=== PATIENT | male | born 1950 | race African-American/Black ===

== ENCOUNTER → 2023-04-16 11:10 | Outpatient (REF) | payer OTHER, SELFPAY | LOC: DHCBC HW 11:10 | PROVIDERS: ATTENDING PHYSICIAN Internal Medicine Cardiovascular Disease; FAMILY PHYSICIAN Family Medicine | DX: I34.0 Nonrheumatic mitral (valve) insufficiency (principal) | CPT/HCPCS: 93306 ==

== ENCOUNTER 2023-05-07 15:46 | Emergency (ER) | payer OTHER, SELFPAY ==
[2023-05-07 15:49] VITALS: BP 134/79
[2023-05-07 16:15] LABS: % Basophils 0.2 % (0-2); % Eosinophils 1.4 % (0-6); % Immature Granulocytes 0.5 % (0-0.5); % Lymphocytes 36.9 % (20.5-51.1); % Monocytes 15.7 % (1.7-9.3); % Neutrophils 45.3 % (42.2-75.2); Absolute Eosinophils 0.1 10^3/uL (0-0.7); Absolute Lymphocytes 3.1 10^3/uL (1.2-3.4); Absolute Monocytes 1.3 10^3/uL (0.1-0.6); Absolute Neutrophils 3.8 10^3/uL (1.4-6.5); Hematocrit 40.9 % (39.0-52.0); Hemoglobin 13.5 g/dL (13.0-18.0); Mean Corpuscular Hgb 27.5 pg (27.0-31.0); Mean Corpuscular Volume 83.3 fL (80.0-94.0); Mean Platelet Volume 9.2 fL (7.4-10.4); Nucleated Red Blood Cells % 0 % (-); Platelet Count 375 10^3/uL (130-400); Red Blood Cell Count 4.91 10^6/uL (4.70-6.10); Red Cell Dist. Width 13.5 % (11.5-14.5); White Blood Cell Count 8.5 10^3/uL (4.8-10.8)
[2023-05-07 16:33] LABS: COVID-19 Antigen Negative (Negative)
[2023-05-07 16:44] LABS: NT-proBNP 70.8 pg/ml; Troponin I < 0.012 ng/ml
[2023-05-07 16:47] LABS: ALT (SGPT) 26 U/L (0-50); AST (SGOT) 32 U/L (17-59); Alkaline Phosphatase 82 U/L (38-126); Blood Urea Nitrogen 24 mg/dl (9-20); Calcium 10.3 mg/dl (8.4-10.2); Carbon Dioxide 25 mmol/L (22-30); Chloride 103 mmol/L (98-107); Glucose 87 mg/dl (70-99); Potassium 4.7 mmol/L (3.5-5.1); Sodium 139 mmol/L (135-145); Total Bilirubin 0.8 mg/dl (0.2-1.3); Total Protein 7.7 g/dl (6.3-8.2); eGFR 57.29
[2023-05-07 18:00] VITALS: BP 135/84
[2023-05-07 18:02] VITALS: BMI 29.6
--- NOTE | 2023-05-07 18:17 | ED.GENMED ---
History of Present Illness
General
Chief Complaint: Breathing Problem
Time Seen by Provider: 05/07/23 18:17
Travel History
Have you had any contact with someone who has COVID-19?: No
Do you have any symptoms of coronavirus? Fever > 100 degrees, chills, cough, shortness of breath, sore throat, loss of taste or smell, muscle aches, or headache?: No
History of Present Illness
History of Present Illness:
HPI: Patient presents due to shortness of breath. It started earlier today. Currently he feels improved. He does report having a bad 'valve' on recent echo. He called Dr. Moya and their office told to come in here for further evaluation. He
never had any chest pain.
EXAM:
GENERAL: Well appearing in no distress
HEENT: Moist oral mucosa
CARDIOVASCULAR: Systolic murmur heard diffusely, normal heart rate and rhythm, No chest wall tenderness
PULMONARY: No respiratory distress, breath sounds are clear and equal
ABDOMEN: Soft with no peritoneal signs, no tenderness
NEUROLOGIC: Excellent strength all extremities, no coordination deficits
PSYCHIATRIC: Appropriate mental status, normal insight and judgement
EXTREMITIES: Nontender, no edema, moves all extremities equally
SKIN: No rash, no lesions
ED COURSE:
6:40 PM: I initially evaluated patient
NUMBER AND COMPLEXITY OF PROBLEMS ADDRESSED AT THE ENCOUNTER
� Chronic conditions affecting care: Atrial fibrillation, mitral regurgitation, high blood pressure, hyperlipidemia, has had pericarditis and required a cardiac window
� Acute Exacerbation and/or Progression of Chronic Illness: This is an acute problem
� Differential Diagnosis includes: Worsening valvular disease, heart failure, ACS pneumonia unlikely as breath sounds are clear and he is 100% on room air
AMOUNT AND/OR COMPLEXITY OF DATA TO BE REVIEWED AND ANALYZED
� I performed an independent evaluation of and my interpretation is:
EKG: Sinus 54, left axis deviation, nonspecific ST abnormality, LVH
CT:
X-rays: Personally reviewed chest x-ray, right lung is clear, questionable density at left base not seen on lateral view
Laboratory Studies: CBC unremarkable, chemistries, troponin, BNP unremarkable, COVID-negative
Other:
� Review of other/old records: Echo from earlier this month showed an EF of 60 to 65%, severe mitral valve regurgitation noted
� Clinical information was obtained by an independent historian: None needed
� Prescriptions/Medications Considered but not given:
� Further testing considered but not performed:
RISK OF COMPLICATIONS AND/OR MORBIDITY OR MORTALITY OF PATIENT MANAGEMENT
� Social determinants of health affecting care: Lives at home
� Discussion with other providers: I notified Dr. Quiroz as the patient was sent by Dr. Denney chest pain hotline follow-up
� Escalation of care including admission/observation vs risk of discharge considered: Symptoms may or may not be related to worsening mitral valvular disease. On reassessment at 7:45 PM, the patient remains to be under percent
on room air and is in no distress.
Past History
Past History
ED Past Medical History: Arrthythmia (afib), HTN and Hypercholesterolemia
ED Past Surgical History: None
Social History
Tobacco: Non-smoker
Alcohol: None
Drug: None
Personal:
Living: with family
Phy Exam
Physical Exam
Physical Exam:
See HPI
Scores
Heart Failure Risk
Heart Failure Risk Score: Not Applicable
Course
Orders/Labs/Results
Orders:
Orders
05/07/23 15:52
Electrocardiogram (*1) Urgent
Reason for Study: Shortness of Breath
EKG- Treatment ONCE
CR Chest - 2 Views Urgent
Comment:
Reason For Exam: SOB
05/07/23 16:00
COVID-19 Antigen Urgent
Source: Nasal Swab
Complete Blood Count/With Diff Urgent
Comprehensive Metabolic Panel Urgent
NT-proBNP Urgent
Troponin I Urgent
05/07/23 16:02
Influenza A+B Rapid Molecular Urgent
CHRISTI Source: Nasal Swab
Specimen Description:
Abnormal Lab Results
05/07/23
16:00
Absolute Monos (auto) 1.3 H 10^3/uL
(0.1-0.6)
Monocytes % 15.7 H %
(1.7-9.3)
BUN 24 H mg/dl
(9-20)
Calcium 10.3 H mg/dl
(8.4-10.2)
05/07/23 16:00
05/07/23 16:00
Vital Signs
Initial and Last Documented VS:
Initial Vital Signs
Temp Pulse Resp BP Pulse Ox
98.3 F 100 20 134/79 99
05/07/23 15:49 05/07/23 15:49 05/07/23 15:49 05/07/23 15:49 05/07/23 15:49
Last Documented Vital Signs
Temp Pulse Resp BP Pulse Ox
98.3 F 45 13 116/73 100
05/07/23 15:49 05/07/23 19:00 05/07/23 19:00 05/07/23 19:00 05/07/23 19:00
*Critical Care Note
Total Time (30-74mins, 75-104mins- exclusive of procedures): Not Applicable
ED Attending Note
-
Portions of this chart may have been created with voice recognition software.� Occasional wrong word or��sound alike� substitutions may have occurred due to the inherent limitations of voice recognition software.
Discharge Plan
Departure
Prescriptions:
No Action
atenolol 100 MG tablet
100 mg PO DAILY
simvastatin 20 MG tablet
20 mg PO DAILY
lisinopril 40 MG tablet
40 mg PO DAILY
spironolactone 25 MG tablet
25 mg PO DAILY
tamsulosin [Flomax] 0.4 MG capsule
0.4 mg PO DAILY
furosemide 20 MG tablet
20 mg PO .EVERY OTHER DAY
celecoxib 200 MG capsule
200 mg PO BID Qty: 14 0RF
lorazepam 0.5 MG tablet
0.5 mg PO Q4HPRN PRN (Reason: muscle spasm) Qty: 14 0RF
Referrals:
Angel Lawson MD [Family Provider] -
Interventions
Interventions:
*Risk Screen - Suicide Last Done: 05/07/23 15:49
*General Assessment Last Done: 05/07/23 15:49
*Neglect/Abuse Screening Last Done: 05/07/23 18:04
ED- Fall Risk Assessment Last Done: 05/07/23 18:04
*ED COVID-19 Vaccine History Last Done: 05/07/23 18:04
ED- Cardiac Assessment Last Done: 05/07/23 18:04
ED- Pulmonary Assessment Last Done: 05/07/23 18:04
[2023-05-07 19:00] VITALS: BP 116/73
[2023-05-07 20:00] VITALS: BP 130/76
[2023-05-07 21:00] VITALS: BP 144/83
== END 2023-05-07 21:44 | disposition home or self-care (01) ==
LOC: EMR 15:46
PROVIDERS: Emergency Medicine; EMERGENCY PHYSICIAN Emergency Medicine; FAMILY PHYSICIAN Family Medicine
DX: R06.02 Shortness of breath (principal); I48.91 Unspecified atrial fibrillation; E78.00 Pure hypercholesterolemia, unspecified; I10 Essential (primary) hypertension; Z11.52 Encounter for screening for COVID-19
CPT/HCPCS: 99285; 71046; 80053; 83880; 84484; 85025; 87502; 87811; 93005

== ENCOUNTER 2023-05-14 08:24 | Day surgery (SDC) | payer OTHER, SELFPAY ==
[2023-05-14] VITALS (10 sets, daily range): BP systolic 81–131; BP diastolic 56–77; BMI 32.8
[2023-05-14] MEDS: NSS 315 ML IV (09:20)
--- NOTE | 2023-05-14 11:53 | ITS.CL.CATH ---
Senior Marketing Specialist - Catheterization
Cardiac Catheterization
Procedure Report:
CARDIAC CATHETERIZATION REPORT
Date of Procedure: 05/14/2023
Referring: Gurpreet Izaguirre MD
Indication: Symptomatic severe mitral regurgitation with mitral valve prolapse
HEMODYNAMIC DATA
AO: 128/82
LV: 128/18
LEFT VENTRICULOGRAPHY: Mild left ventricular enlargement with overall normal left ventricular function with EF visually estimated at 60%. There is at least moderate and probably severe mitral regurgitation with evidence of mitral valve prolapse
CORONARY ANGIOGRAPHY
Dominance: Right
Left Main: Normal
LAD: Normal
Circumflex: Normal
RCA: Normal dominant RCA
Closure Device: None-the procedure was performed via the right radial artery. The Michael's test was normal prior to the procedure.
Radiation (mGy): 362
DAP (cm2.Gy): 31.7
Fluoroscopy time: 2.9 minutes
CONCLUSIONS
1: Mild left ventricular enlargement with visually estimated EF 60%
2: Mitral valve prolapse/moderate to severe right regurgitation
3. We will refer for evaluation for surgical mitral valve repair/replacement
Copy to: Gurpreet Izaguirre MD, Angel Lawson MD, Mateo Mustafa MD
Richie Moreland MD, [facility], [facility]
== END 2023-05-14 14:20 | disposition home or self-care (01) ==
LOC: CATH 08:24
PROVIDERS: ATTENDING PHYSICIAN Internal Medicine Cardiovascular Disease; FAMILY PHYSICIAN Family Medicine; OTHER PHYSICIAN Internal Medicine Cardiovascular Disease
DX: I34.0 Nonrheumatic mitral (valve) insufficiency (principal); I34.1 Nonrheumatic mitral (valve) prolapse; I10 Essential (primary) hypertension; E78.00 Pure hypercholesterolemia, unspecified
CPT/HCPCS: 93458; C1894; Q9967

== ENCOUNTER → 2023-06-02 09:52 | Outpatient (REF) | payer OTHER, SELFPAY | LOC: HWRAD 09:52 | PROVIDERS: ATTENDING PHYSICIAN Thoracic Surgery (Cardiothoracic Vascular Surgery); FAMILY PHYSICIAN Family Medicine | DX: Z01.818 Encounter for other preprocedural examination (principal); I34.0 Nonrheumatic mitral (valve) insufficiency | CPT/HCPCS: 71275; 74174; Q9967 ==

== ENCOUNTER → 2023-06-03 06:44 | Day surgery (SDC) | payer OTHER, SELFPAY | LOC: CATH 06:44 | PROVIDERS: ATTENDING PHYSICIAN Internal Medicine; FAMILY PHYSICIAN Family Medicine | DX: I08.3 Combined rheumatic disorders of mitral, aortic and tricuspid valves (principal); I10 Essential (primary) hypertension; E78.5 Hyperlipidemia, unspecified; G47.33 Obstructive sleep apnea (adult) (pediatric) | CPT/HCPCS: 93312; 93320; 93325 ==

== ENCOUNTER 2023-06-14 04:57 | Inpatient (IN) | payer OTHER, SELFPAY ==
[2023-05-27 12:25] VITALS: BMI 33.1
[2023-05-27 12:49] LABS: % Basophils 0.7 % (0-2); % Eosinophils 1.7 % (0-6); % Immature Granulocytes 0.4 % (0-0.5); % Lymphocytes 39.6 % (20.5-51.1); % Monocytes 15.1 % (1.7-9.3); % Neutrophils 42.5 % (42.2-75.2); Absolute Eosinophils 0.1 10^3/uL (0-0.7); Absolute Lymphocytes 2.1 10^3/uL (1.2-3.4); Absolute Monocytes 0.8 10^3/uL (0.1-0.6); Absolute Neutrophils 2.3 10^3/uL (1.4-6.5); Hemoglobin 13.5 g/dL (13.0-18.0); Mean Corp Hgb Conc. 33.8 g/dL (33.0-37.0); Mean Corpuscular Hgb 27.6 pg (27.0-31.0); Mean Corpuscular Volume 81.8 fL (80.0-94.0); Nucleated Red Blood Cells % 0 % (-); Platelet Count 321 10^3/uL (130-400); Red Blood Cell Count 4.89 10^6/uL (4.70-6.10); Red Cell Dist. Width 13.7 % (11.5-14.5); White Blood Cell Count 5.4 10^3/uL (4.8-10.8)
[2023-05-27 12:57] LABS: INR 1.17
[2023-05-27 12:58] LABS: APTT 30.1 Sec (23.4-35.0)
[2023-05-27 13:05] LABS: ALT (SGPT) 29 U/L (0-50); AST (SGOT) 32 U/L (17-59); Albumin 4.3 g/dl (3.5-5.0); Alkaline Phosphatase 78 U/L (38-126); Blood Urea Nitrogen 18 mg/dl (9-20); Calcium 9.5 mg/dl (8.4-10.2); Carbon Dioxide 23 mmol/L (22-30); Chloride 108 mmol/L (98-107); Direct Bilirubin 0.1 mg/dl (0.0-0.4); Estimated Creatinine Clearance 60 ml/min; Glucose 96 mg/dl (70-99); Potassium 4.9 mmol/L (3.5-5.1); Sodium 137 mmol/L (135-145); Total Bilirubin 0.9 mg/dl (0.2-1.3); Total Protein 7.6 g/dl (6.3-8.2); eGFR 57.29
[2023-05-27 14:07] LABS: Urine Albumin Negative (Neg - Trace); Urine Bilirubin Negative (Negative); Urine Character Clear (Clear); Urine Color Yellow; Urine Glucose Negative (Negative); Urine Ketone Negative (Negative); Urine Leukocyte Negative (Negative); Urine Nitrite Negative (Negative); Urine Occult Blood Negative (Negative); Urine Specific Gravity 1.015 (<1.030); Urine Urobilinogen Negative (Neg - 1+)
--- NOTE | 2023-05-27 15:04 | CM ---
CM met w/ patient at bedside for PATs for planned MVR.
Patient informs that he resides alone in a private, multi level home. Main bedroom/ bath located on the 2nd level. There are no steps to enter the home. Patient is functionally indep. at baseline w/ ADLs, mobility without the use of any assisted
device. He does have a CPAP, which he uses regularly. Pt. works 4 days per week. He has many family members, though none of whom reside very locally.
Reviewed pre and post op routines.
Soap, shower instructions, and Cardiac Surgery booklet provided.
Discussed post op restrictions to include lifting, driving restrictions.
Reviewed post op MD appointments, Cardiac Rehab and visit from CT Transitional Care RN. *Pt. MAY consider staying with his sister in [place] for a short period of time. Alternatively, he may have family staying w/ him for a brief period of time*
Plan for CT Surgery 06/13
Anticipated DC plan is for home w/ CT Transitional Care RN.
CM to follow.
--- NOTE | 2023-06-13 20:56 | W.PN.CT ---
Assessment / Plan
-
Assessment:
-S/P Redo mediastinal access via right mini thoracotomy with right common femoral artery and vein cannulation under PANCHO guidance/Radical mitral valve repair (32 mm band annuloplasty, 2 pairs of CV 4 Granger-Paul cords to the P2 scallop, 1 pair of CV 4
Granger-Paul cord to the A2 scallop, free margin remodeling at P1/P2 and P2/P3 and A2/A3)/Significant adhesiolysis intrapericardial as well as pneumolysis of pulmonary adhesions, by Dr. Mustafa, 06/14/23, pod#1
-Severe MR
-Dilated Asc. Aorta (3.5 cm per intraop PANCHO)
-LVEF 60-65%
-Mild TR
-Hx Pericardial effusion/pericarditis S/P pericardiotomy/pericardiocentesis, pericardectomy via subxiphoid and L ant. thoracotomy approach, 40 yrs ago
-Sinus bradycardia with 1st deg AVB
-Incomplete LBBB
-HTN
-Hyperlipidemia
-Prediabetes (hgb A1C 6.0)
-Class 1 obesity (BMI 33.1)
-PAMELA (uses CPAP machine)
-BPH (on Flomax @ home)
-S/P Cataracts
-Acute postop blood loss/Anemia (stable without transfusion)
-Acute postop atelectasis
-Acute postop hypovolemia with subsequent hypervolemia
Plan:
-No major issues overnight. Hemodynamically and neurologically intact
-Successfully extubated on 06/14/23 @ 1710
-Weaned off Levophed gtt. Remains on insulin gtt per protocol
-Last CI , U/O since OR
-Cont. current meds (ASA, Lipitor, Amiodarone, Lopressor)
-Monitor chest tube output: Med , R pleural
-D/C'd swan ~1800 on 06/14/23
-D/C A-line this AM @ 0415
-Transfer to [facility] phase once off insulin gtt
-D/C lopez later today given BPH on flomax @ home
-Maintain cordis
-Maintain temporary pacer wires (will cut before d/c home)
-Encourage use of IS
-Wean off of O2 as tolerated
-OOB into chair/Ambulate
Subjective
-
Date of Service: June 13, 2023
Objective Data
-
Lab Results
05/27/23 12:08
05/27/23 12:08
PT 15.0 Sec (11.4-14.6) H 05/27/23 12:08
INR 1.17 05/27/23 12:08
APTT 30.1 Sec (23.4-35.0) 05/27/23 12:08
[2023-06-14] VITALS (15 sets, daily range): BP systolic 98–148; BP diastolic 67–83; BMI 31.7
[2023-06-14] MEDS: LOPRESSOR 25 MG PO (05:53)
[2023-06-14] MEDS: MAGNESIUM OXIDE 500 MG PO (05:53)
[2023-06-14] MEDS: PROTONIX 40 MG PO (05:54)
[2023-06-14] MEDS: BACTROBAN 2% OINTMENT 1 APPLIC NASAL ×2 (05:54→20:16)
--- NOTE | 2023-06-14 06:00 | PTCARENOTE ---
Pt to CVICU room 2262. Confirmed NPO since midnight and two showers taken at home with surgical soap. ABO drawn and sent. Vital signs obtained. Admission questions completed. Pt clipped and cleaned w/ CHG wipes. Pre-op medications administered. Pt
two daughters at the bedside. Pt oriented to room. Questions encouraged and answered.
--- NOTE | 2023-06-14 06:13 | W.CVOR.SURPR ---
CVOR Surgeon Immed Pre Op
-
I have examined this patient prior to performance of the scheduled procedure.
The patient's condition is unchanged from the time of the dictated/written History and
Physical and the patient is able to undergo the scheduled procedure.
Plan for HP MV repair. He had what sounds like pericardial effusion (for viral infection) that lead to pericardiocentesis that ultimately
resulted in urgent surgery via sub xiphoid incision and left anterior thoracotomy. He states that he was told
part of his heart sac lining was inflamed which was removed. He understands that we will proceed right thoracotomy at first
which might be better as the R chest is [place]. However, he has a higher than average chance of conversion to sternotomy
as we are technically in a redo-mediastinal access situation.
[2023-06-14 07:16] LABS: ACT+ - POC 112 Seconds (82-134)
[2023-06-14 07:19] LABS: B.E. - POC -2.9 mmol/L; Glucose - POC 93 mg/dl (65-99); HCO3 - POC 24 mmol/L (21-29); Hematocrit - POC 37 % PCV (42-52); Hemodilution- POC No; Hemoglobin Calculated - POC 12.7; O2 Saturation %Calculated-POC 99.9 5 (92-96); PCO2 - POC 48 mmHg (35-45); PO2 - POC 312 mmHg (80-100); Potassium - POC 3.9 mmol/L (3.6-5.0); Sodium - POC 144 mmol/L (135-145); pH - POC 7.31 (7.35-7.45)
[2023-06-14 07:35] LABS: Urine Albumin Negative (Neg - Trace); Urine Bilirubin Negative (Negative); Urine Character Clear (Clear); Urine Color Yellow; Urine Glucose Negative (Negative); Urine Ketone Negative (Negative); Urine Leukocyte Negative (Negative); Urine Nitrite Negative (Negative); Urine Occult Blood Negative (Negative); Urine Specific Gravity 1.015 (<1.030); Urine Urobilinogen Negative (Neg - 1+)
[2023-06-14 09:09] LABS: ACT+ - POC 625 Seconds (82-134)
[2023-06-14 09:20] LABS: B.E. - POC -0.9 mmol/L; Glucose - POC 102 mg/dl (65-99); HCO3 - POC 24 mmol/L (21-29); Hematocrit - POC 30 % PCV (42-52); Hemodilution- POC Yes; Hemoglobin Calculated - POC 10.2; Ionized Calcium - POC 1.08 mmol/L (1.12-1.27); PCO2 - POC 42 mmHg (35-45); PO2 - POC 463 mmHg (80-100); Potassium - POC 4.8 mmol/L (3.6-5.0); Sodium - POC 139 mmol/L (135-145); pH - POC 7.37 (7.35-7.45)
[2023-06-14 09:25] LABS: ACT+ - POC 640 Seconds (82-134)
[2023-06-14 09:49] LABS: B.E. - POC -1.4 mmol/L; Glucose - POC 137 mg/dl (65-99); HCO3 - POC 27 mmol/L (21-29); Hematocrit - POC 31 % PCV (42-52); Hemodilution- POC Yes; Hemoglobin Calculated - POC 10.5; Ionized Calcium - POC 1.13 mmol/L (1.12-1.27); O2 Saturation %Calculated-POC 99.9 5 (92-96); PCO2 - POC 62 mmHg (35-45); PO2 - POC 355 mmHg (80-100); Sodium - POC 139 mmol/L (135-145); pH - POC 7.24 (7.35-7.45)
[2023-06-14 09:50] LABS: ACT+ - POC 565 Seconds (82-134)
[2023-06-14 10:19] LABS: ACT+ - POC 526 Seconds (82-134)
[2023-06-14 10:25] LABS: B.E. - POC -5.4 mmol/L; Glucose - POC 179 mg/dl (65-99); HCO3 - POC 22 mmol/L (21-29); Hematocrit - POC 30 % PCV (42-52); Hemodilution- POC Yes; Hemoglobin Calculated - POC 10.3; Ionized Calcium - POC 1.06 mmol/L (1.12-1.27); O2 Saturation %Calculated-POC 99.8 5 (92-96); PCO2 - POC 48 mmHg (35-45); PO2 - POC 284 mmHg (80-100); Potassium - POC 6.8 mmol/L (3.6-5.0); Sodium - POC 137 mmol/L (135-145); pH - POC 7.26 (7.35-7.45)
[2023-06-14 10:42] LABS: ACT+ - POC 504 Seconds (82-134)
[2023-06-14 10:50] LABS: B.E. - POC -3.1 mmol/L; Glucose - POC 163 mg/dl (65-99); HCO3 - POC 22 mmol/L (21-29); Hematocrit - POC 31 % PCV (42-52); Hemodilution- POC Yes; Hemoglobin Calculated - POC 10.5; Ionized Calcium - POC 1.03 mmol/L (1.12-1.27); PCO2 - POC 41 mmHg (35-45); PO2 - POC 401 mmHg (80-100); Potassium - POC 4.6 mmol/L (3.6-5.0); Sodium - POC 141 mmol/L (135-145); pH - POC 7.34 (7.35-7.45)
[2023-06-14 10:54] LABS: ACT+ - POC 555 Seconds (82-134)
[2023-06-14 11:19] LABS: ACT+ - POC 506 Seconds (82-134)
[2023-06-14 11:22] LABS: B.E. - POC -1.6 mmol/L; Glucose - POC 142 mg/dl (65-99); HCO3 - POC 22 mmol/L (21-29); Hematocrit - POC 30 % PCV (42-52); Hemodilution- POC Yes; Hemoglobin Calculated - POC 10.1; Ionized Calcium - POC 0.98 mmol/L (1.12-1.27); PCO2 - POC 30 mmHg (35-45); PO2 - POC 365 mmHg (80-100); Potassium - POC 4.3 mmol/L (3.6-5.0); Sodium - POC 144 mmol/L (135-145); pH - POC 7.47 (7.35-7.45)
[2023-06-14 11:44] LABS: ACT+ - POC 112 Seconds (82-134)
--- NOTE | 2023-06-14 11:46 | CM ---
Chart reviewed. Patient is in the OR today. Patient is independent of ADLS, lives alone in a 2 STH, 0 CLARIBEL, 0 DME. Plan is for the patient to return home with CT Transitional RN. CM to follow
[2023-06-14 11:47] LABS: B.E. - POC -3.7 mmol/L; Glucose - POC 112 mg/dl (65-99); HCO3 - POC 23 mmol/L (21-29); Hematocrit - POC 32 % PCV (42-52); Hemodilution- POC Yes; Hemoglobin Calculated - POC 10.9; Ionized Calcium - POC 1.23 mmol/L (1.12-1.27); O2 Saturation %Calculated-POC 99.9 5 (92-96); PCO2 - POC 45 mmHg (35-45); PO2 - POC 310 mmHg (80-100); Potassium - POC 3.7 mmol/L (3.6-5.0); Sodium - POC 147 mmol/L (135-145); pH - POC 7.31 (7.35-7.45)
--- NOTE | 2023-06-14 12:19 | W.PN.CT.SURG ---
CT Surgery Operative Note
-
CARDIAC SURGERY OPERATIVE REPORT
Preoperative Diagnosis: Myxomatous mitral valve degeneration with severe insufficiency, symptomatic
Postoperative Diagnosis: Same, dense adhesions
Procedure(s) Performed:
1. Redo mediastinal access via right mini thoracotomy with right common femoral artery and vein cannulation under PANCHO guidance
2. Radical mitral valve repair (32 mm band annuloplasty, 2 pairs of CV 4 Royersford-Paul cords to the P2 scallop, 1 pair of CV 4 Royersford-Paul cord to the A2 scallop, free margin remodeling at P1/P2 and P2/P3 and A2/A3)
3. Placement temporary ventricular pacing wires
4. Trans esophageal echocardiography
5. Video-assisted thoracoscopic access using a 5 mm trocar and camera
6. Significant adhesiolysis intrapericardial he as well as pneumolysis of pulmonary adhesions
Date of Surgery: 06/14/2023
Comorbidities:
1. Prior pericardiotomy and pericardiectomy
2. 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
3. Hypertension
4. Hyperlipidemia
5. BPH
6. History of pericarditis requiring pericardiocentesis and subxiphoid and left anterior thoracotomy
Attending Surgeon: Mateo Mustafa MD, MS
Assistants: Cinda Kelsey PA-C (present and necessary for retraction, suctioning, exposure, suture management, wound closure, etc. under my direction)
Anesthesiology: Terry De Jesus MD and Fabi Philip CRNA
Scrub and Circulating RNs: Radha Avalos RN, Radha Fox RN
Member Service Specialist: Ramona Roth CCP
Anesthesia: GETA
EBL: per perfusion records
Products: None
CPB Time: 132 minutes
Aortic Cross Clamp Time: 104 minutes
Indication(s) for Procedures: This is a 73-year-old male with myxomatous mitral valve degeneration. He came with symptomatic mitral valve insufficiency in the form of shortness of breath and fatigue. He had previous meningitis that led to
pericarditis resulting in a pericardiocentesis attempt and then resulted in urgent subxiphoid window followed by a left anterior thoracotomy. We discussed the risk and benefits of surgery, he understood that given his previous pericardiotomy there
will be a likely highly noted of dense adhesions requiring adhesiolysis and conversion to a sternotomy. He excepted those risks and so we proceeded.
Mitral Valve Description: Thickening of both the anterior and posterior leaflets, flail segment at the P2 scallop which is also prolapse. Large cleft between P1/P2 and P2/P3. Small cleft between A2 and A3. The anterior leaflet did slightly
prolapse above the annular plane, there was dilation of the annulus.
Implants:
1. 32mm CONNER PhysioFlex Band, SN [id number]
2. 3 pairs of CV 4 Royersford-Paul
3. Multiple 5-0 Prolene's
Specimen:
1. None
Findings: Left ventricular ejection fraction preoperatively was approximately 60% with no regional wall motion abnormalities. Following surgery his left ventricular ejection fraction remained the same and there were no new regional wall motion
abnormalities. RV function was normal. The chest was initially accessed using a thoracoscopic camera under direct vision. There were dense adhesions of the lung to the anterior chest wall and pericardium. There is also dense adhesions
intrapericardial. The mitral valve was repaired using a total of 11 nonpledgeted 2 Ethibond sutures to secure a 32 mm band annuloplasty using core knots. 2 pairs of CV 4 Royersford-Paul were placed to the P2 scallop followed by free edge remodeling at
P1/P2 and P2/P3. I noticed that there was some prolapsing of the A2 and so a single CV 4 Royersford-Paul cord was placed in the posterior medial papillary muscle head up to the A2 segment. Additionally a small cleft was closed between A2 and A3. Dynamic
inflation of the left ventricle using saline revealed good posterior coaptation line with acceptable coaptation height. After removal of the cross-clamp and coming off of cardiopulmonary bypass there was no residual mitral valve insufficiency, no
systolic anterior motion of the leaflets, and a mean gradient of 3 across the valve with a cardiac index of 3 at that time. Of note I had to recross clamp and redosed cardioplegia multiple times due to the Stewart clamp not being fully occlusive.
He also required 1 defibrillation event after coming off cardiac bypass initially. No obvious air leak was noticed following the dense adhesiolysis, the pericardium was left open as the heart was dense adhesions on the pericardium and likely not to
herniate. No products were given.
Description of Procedure: The patient was brought to the operating room and placed supine in the table with their right side bumped up and right arm down. Arterial and central access was performed by anesthesiology. The patient was prepped from chin
to toes in the typical sterile fashion. Trans esophageal evaluation of cardiac function and all valvular structures was conducted. Before commencing, a time out was performed by all members of the team. All were in agreement with the procedure and
laterality and I proceeded. A small right groin incision was made to expose the common femoral artery and vein with a counterincision. Using a 5 mm trocar and 5 mm scope, the chest was entered under direct vision and found to have acceptable space
although there were dense adhesions. A total of 55,000 units of heparin was given. A 5-6 cm right lateral thoracotomy was performed over the 4th intercostal space verified by visualization of the hilum. Using a sponge stick with gentle retraction,
I use electrocautery to mobilize the adhesions from the anterior chest wall as well as pericardium. The common femoral artery and vein were cannulated under transesophageal guidance using open Seldinger technique. The arterial line was verified to
have an appropriate bounce and pressure correlating with testing. Once the ACT was above 400, retrograde autologous priming was done and we commenced cardiopulmonary bypass. Target core temperature was 34�C.
Carbon dioxide was used to flood the field. The course of the phrenic nerve was identified to prevent injury. The pericardium was opened and two stay sutures were placed to facilitate a ``pericardial table.�� The oblique sinus was developed followed
by the inter atrial groove. An antegrade root vent was inserted and secured with a pursestring suture. The pump flow and mean arterial pressure were lowered and an aortic cross clamp was applied to the ascending aorta. A total of 1.2L initial dose
of Antegrade cardioplegia was delivered. We had rapid electro myocardial quiescence at 200cc of cardioplegia. The ventricle was monitored for distension by echocardiogram during this time. The left atrium was incised and enlarged. A left atrial lift
retractor was placed. The mitral valve was inspected. The mitral valve was repaired as described above. The left atriotomy was closed with 3-0 prolene in a running fashion leaving a ventricular vent in place to de-air. After filling the heart, the
vent was removed and the prolene was secured with a corknot. Unipolar ventricular pacing wire was placed on the base of the right ventricle. The patient was placed into Trendelenburg position and pump flows were lowered. The clamp was slowly
removed with the root vent turned on. De-airing maneuvers were performed. We started to rewarm with a target of 36.5�C.
As the heart recovered, the mitral valve and ventricular function were assessed under transesophageal echocardiogram. The LV vent and root vents were removed. Once weaning parameters were satisfactory, cardiopulmonary bypass flow was lowered until
we were off cardiopulmonary bypass the mitral valve was inspected again. All surgical sites were inspected for hemostasis and appeared appropriate. The lines were clamped and the arterial was relocated to the venous cannula to give back volume. A
test dose of protamine was delivered and patient was monitored for any adverse reactions followed by complete protamine dosing. The femoral vessels were decannulated and repaired as indicated. The pericardium was not re-approximated. One 19F Tito
drain remained in the pleural space and one 24F tito drain in the pericardium. There was an excellent palpable distal to the SENIOR PLANNER cannulation site. Local analgesia was injected to the thoracotomy. The rib space was approximated with #2 Vicryl
suture. The incision was closed in layers in a running fashion.
All instrument, sponge, and needle counts were confirmed to be correct x 2 at the end of the operation. The patient was transferred to the cardiac intensive care unit in critical but stable condition.
I, Dr. Mateo Mustafa, was present, scrubbed for, and performed all critical elements of this procedure.
Mateo Mustafa MD, MS
Cardiothoracic Surgeon
[facility]
This dictation was created using the MailWriter dictation system. Please excuse any grammatical, typographical, or 'sound alike' errors
[2023-06-14 12:38] LABS: Glucose - Point of Care 103 mg/dl (70-99)
--- NOTE | 2023-06-14 12:42 | W.PN.CD ---
Addendum entered and electronically signed by Sherman Blackburn MD 06/14/23 15:09:
I saw and examined the patient.
The TUBE WRAPPER's note was reviewed and I agree with the note.
Comment: He is intubated. He is on a Cardene gtt. hemodynamics good. Easy ventillator sounds without wheezing or rhonchi. RRR no ,m/r/g. Continue typical post op care POD #0.
will follow
Original Note:
Today's Communication / Plan
-
EKG in am
Follow telemetry
Impression / Plan
-
BACKGROUND: 73M with HTN who presented for MV repair
Senior Construction Estimator: Dr. Izaguirre
Myxomatous mitral valve degeneration with severe insufficiency S/P MV repair 06/14/[address] Mustafa
-Pre EF 60%, post unchanged without RWMA
-No MR no HALLE post
-Significant adhesiolysis intrapericardial he as well as pneumolysis of pulmonary adhesions
-EKG with first degree AV block & prolonged QT, EKG in am
-Required one defibrillation event after coming off cardiac bypass initially
-Follow telemetry
HTN
HLD, on simvastatin
Prior pericardiotomy and pericardiectomy
PAMELA, on CPAP
Physical Exam
Vital Signs/Labs
Vital Signs
Temp Pulse Resp BP Pulse Ox
97.6 F 65 18 125/78 99
06/14/23 05:30 06/14/23 05:53 06/14/23 05:30 06/14/23 05:53 06/14/23 05:30
06/13/23 06/14/23 06/15/23
06:59 06:59 06:59
Actual Weight 102.7 kg
PT 15.0 Sec (11.4-14.6) H 05/27/23 12:08
INR 1.17 05/27/23 12:08
APTT 30.1 Sec (23.4-35.0) 05/27/23 12:08
Physical Exam
Constitutional: No acute distress and Comfortable
EENT: Anicteric and Moist mucous membranes
Cardiovascular: Rhythm & rate is regular and S1S2 is normal
Respiratory: Lungs clear to auscul. and Other (ETT to mechanical ventilation)
GI: Soft, Distention absent, Flat, Non tender and Normal bowel sounds
Neuro/Psych: AO x 3
Other: Skin (warm and dry)
Data Reviewed
-
Date of Service: June 14, 2023
EKG: Report Reviewed by me
Labs: Labs Reviewed by me
Old Records: Reviewed
[2023-06-14 12:56] LABS: B.E. -3.3 mmol/L; HCO3 23.9 mmol/L (21-28); Hematocrit 32.7 % (39.0-52.0); Hemoglobin 10.9 g/dL (13.0-18.0); Ionized Calcium 1.18 mMOL/L (1.15-1.33); O2 Saturation % 99.7 % (94-98); PCO2 52 mmHg (35-48); PO2 187 mmHg (83-108); Platelet Count 182 10^3/uL (130-400); Potassium 3.6 mMOL/L (3.5-5.1); Sodium 141 mMOL/L (136-145); pH 7.27 (7.35-7.45)
[2023-06-14] MEDS: ANCEF 10 IV ×2 (12:56)
[2023-06-14] MEDS: NSS 500 IV (12:57)
[2023-06-14] MEDS: KCL 50 IV ×2 (13:04→14:08)
[2023-06-14 13:06] LABS: INR 1.54; PT 18.3 Sec (11.4-14.6)
[2023-06-14 13:07] LABS: APTT 32.1 Sec (23.4-35.0)
[2023-06-14 13:11] LABS: Blood Urea Nitrogen 19 mg/dl (9-20); Estimated Creatinine Clearance 65 ml/min; Glucose 101 mg/dl (70-99); Magnesium 3.3 mg/dl (1.6-2.3)
[2023-06-14] MEDS: CARDENE 200 IV (13:15)
--- NOTE | 2023-06-14 13:15 | PTCARENOTE ---
pt received from CVOR, sedated on Precedex gtt @0.5mcg/kg/hr, RASS -5. core temp 93.7F, bear hugger applied. SR w/ 1st degree AVB on the monitor, HR 70s. V wire in place, pacer box off. SBP 100-130s, Levophed gtt titrated off, Cardene gtt initiated
per orders. PAP 20s-30s/10s, CVP ~6-8. CI 2.78. palpable radial pulses, Doppler pedal pulses. no edema. pt mechanically ventilated, ETT #8.0, 21cm@lip. SIMV 12, TV 550, PS 5, PEEP 10, FIO2 60%. POX 99%. lungs clear anteriorly. suctioned for thin
clear secretions. oral hygiene provided. CT x2, no air leak or crepitus noted. pt abdomen round, hypoactive BS. [place] in place, clear yellow urine, [place] care provided. R lateral chest surgical incisions approximated, LEAH. R groin incision
approximated, CUPOLA PATCHER. chest tube site c/d/i. RIJ cordis/swan maintained. L radial Sharri flushed, zeroed and calibrated. PIV. insulin gtt running as ordered. lab work drawn, EKG performed. CXR completed. see worklist for VS, I&O, and assessment.
[2023-06-14] MEDS: TYLENOL PO (13:40)
[2023-06-14 13:51] LABS: Glucose - Point of Care 97 mg/dl (70-99)
--- NOTE | 2023-06-14 13:53 | W.PN.UPDATE ---
Update Note
Progress Note Update
73 year old male electively admitted 06/14/23 for mitral valve repair.
IV fluids: 1750
U.O.:� 375
Blood:� none
Wires:� 2 V-wires
Inotropes:� none
Pressors:� Levophed
Sedatives:� Precedex
�
NEURO: sedated on Precedex, pupils pinpoint B/L
RESP: #8OT @24cm> 500/60%/12/10. Lungs clear B/L. 2 separate R pleural (0cc in each on arrival) chest tubes to -20cm suction. Sanguineous drainage in tubing
CV: RRR +S1, S2, no S3, no�rub, no murmur. Dermabond to right mini thoracotomy. RIJ w/[place] locked @ 47cm. PA 30/16; CVP 7; C.O 5.9/C.I 2.6
ABD: round, soft, no BS
EXT: no edema, +2/4 DP pulses B/L, no femoral bruit, right femoral cannulation site intact; left radial A-line intact
: Campoverde with clear yellow urine
�
A/P: POD #0 s/p mitral valve repair #32mm annuloplasty band, 2 pair of CV 4 [place]-Paul chords to P2 scallop, 1 pair of CV4 [place]-Paul chord to A2 scallop, free margin remodeling at P1/P2, P2/P3, and A2/A3 via right mini thoracotomy
PANCHO: report pending
- wean precedex and extubate
- will need instruction regarding antibiotic prophylaxis for dental and invasive procedures
# HTN
-wean Levophed to maintain MAP 60-90
- resume beta-locker and ACEI as BP/HR permit
# PAMELA
- will have family bring in CPAP
# BPH
- resume Flomax 0.4mg daily once off pressor and as BP permits
�
# acute surgical blood loss anemia-expected
- Hb 10.9
- trend CBC
�
# Pre-diabetes (A1C 6.0)
- insulin infusion x 24h
- consider correctional insulin scale
�
# Hyperlipidemia
- resume�Simvastatin 20mg daily when tolerating solids
[2023-06-14 14:23] LABS: B.E. -2.8 mmol/L; HCO3 21.9 mmol/L (21-28); O2 Saturation % 98.9 % (94-98); PCO2 37 mmHg (35-48); PO2 115 mmHg (83-108); pH 7.38 (7.35-7.45)
--- NOTE | 2023-06-14 14:26 | PTCARENOTE ---
vent settings changed per CAREER DEVELOPMENT DIRECTOR based on post op ABG, rate increased to 16, FIO2 decreased to 40%. ABG drawn on adjusted settings. CAREER DEVELOPMENT DIRECTOR aware of results.
--- NOTE | 2023-06-14 14:45 | CON.INTV ---
Consultation
Consultation Request
Date/Time Consultation Requested: 06/14/23
Date/Time Consultation Performed: 06/14/23
Performing Provider: Kenzie
Reason for Consultation: ICU
Medical History
-
History of Present Illness:
Patient is a 73-year-old male with previous history of hypertension, mitral valve prolapse/insufficiency with symptoms of shortness of breath for up to 1 year. He underwent cardiac workup with preserved left ejection fraction and eccentric severe
mitral regurgitation. Underwent mitral valve repair and postoperatively transferred to CVICU for further management.
Past Medical History
Past Medical History: Other (see list below)
Social History
Tobacco: Non-smoker
Alcohol: None
Drug: None
Family History
Family History: Reviewed & Not Pertinent
Allergies / Home Medications
Allergies
Allergy/AdvReac Type Severity Reaction Status Date / Time
azithromycin Allergy Unknown Verified 06/14/23 05:43
Home Medications
�Medication �Instructions �Recorded �Confirmed �Last Taken �Type
simvastatin 20 mg tablet 20 mg PO DAILY 07/16/12 06/14/23 06/13/23 20:00 History
spironolactone 25 mg tablet 25 mg PO DAILY 06/13/17 06/14/23 06/11/23 08:00 History
tamsulosin 0.4 mg capsule (Flomax) 0.4 mg PO DAILY 06/13/17 06/14/23 06/13/23 20:00 History
atenolol 25 mg tablet 25 mg PO DAILY 05/14/23 06/14/23 06/13/23 08:00 History
lisinopril 10 mg tablet 10 mg PO DAILY 05/14/23 06/14/23 06/11/23 20:00 History
zolpidem 10 mg tablet 10 mg PO HS sleeping 05/14/23 06/14/23 06/09/23 20:00 History
finasteride 06/14/23 06/13/23 08:00 History
Review of Systems
-
Unable to Obtain full review of systems at this time due to: Patient Intubation
Vitals / Labs / Diagnostic Testing
Vital Signs
Temp Pulse Resp BP Pulse Ox
95.2 F L 76 20 104/73 99
06/14/23 13:57 06/14/23 14:20 06/14/23 14:20 06/14/23 14:00 06/14/23 14:31
Lab Data
06/14/23 12:29
Laboratory Results
06/14/23 06/14/23
12:29 14:13
PT 18.3 H
INR 1.54
APTT 32.1
pH 7.27 L 7.38
pCO2 52 H 37
pO2 187 H 115 H
HCO3 23.9 21.9
O2 Delivery Level
Diagnostic Testing:
Physical Exam
-
HEENT: Normocephalic, Anicteric and Moist Mucous Membranes
Cardiovascular: S1/S2 and Regular Rhythm
Respiratory: Clear, Non-Labored Respirations and Other (ETT/chest tube)
GI: Soft, Non Distended and Non Tender
Neurology: Awake, Alert, No Motor Deficits and Other (sedated/intubated, awakening)
Skin: Warm, Dry and Good Color
General: Comfortable and Other (NAD)
Assessment
-
Patient is a 73-year-old male with previous history of hypertension, mitral valve prolapse/insufficiency with symptoms of shortness of breath for up to 1 year. He underwent cardiac workup with preserved left ejection fraction and eccentric severe
mitral regurgitation. Underwent mitral valve repair and postoperatively transferred to CVICU for further management.
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
margin remodeling at P1/P2 and P2/P3 and A2/A3) 4/1/24
Perioperative mechanical ventilation
Postop anemia, mild
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
HTN
HLD
BPH
PAMELA on CPAP
MVP
Cataracts
History of pericarditis s/p pericardiectomy
Plan
S/p MVR POD #0
Titrate off pressors per protocol
ECHO reviewed with normal function
PA catheter readings reviewed
Management of chest tubes per primary service
Intubated/sedated, initiate SAT when able
Pain control
RASS goal of 0 to -1
Intubated for procedure, SBT trial when patient able to spontaneously breath
Current vent settings: PS 5 with adequate MV
ABG(s) reviewed, initial likely while on sedation, repeat pending
CXR with no obvious opacities/infiltrates, low lung volumes, ETT in good position, lines/tubes in place
Extubate per protocol
Maintain supplement oxygen as needed
No prior history of pulmonary disease
Prior PFTs reviewed--restriction noted, likely related to BMI/possible HF component related to VHD
PAMELA history, on CPAP/resume post extubation
Can add nebulizers if needed
Aspiration precautions
Encouraged incentive spirometry, OOB/ambulation/early mobility
Advance diet as tolerated following extubation
GI prophylaxis if indicated for mechanical ventilation >48 hours
Monitor critical I/O's
Campoverde/chest tube output
Hb/platelets postoperatively stable
Trend CBC for now
Can transfuse if indicated for Hb <7, plt <50 in surgical patients
DVT prophylaxis including SCDs
No history of BM
Hba1c 6.0, prediabetic
Insulin gtt/management per team
We will follow
Diagnostic Data
Chest X-Ray: 06/14/23- Support apparatus in position with endotracheal tube tip in the trachea less than 2 cm above the piero. Low lung volumes with some likely mild bibasilar subsegmental atelectasis.
No pneumothorax
CT Scan: CAP 06/02/23- 1. Ascending thoracic aorta is of top normal size, measuring 3.5 cm in transverse dimension.
2. Mild coronary arterial calcification. Please correlate with symptoms of and risk factors for coronary artery disease, with further workup as clinically appropriate.
3. 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 No significant SMA or HALIE stenosis.
4. Cholelithiasis without evidence of acute cholecystitis.
5. Moderate prostatic enlargement.
PANCHO 06/14/23- Overall LVEF is approximately 60% with no RWMA. Left ventricle is mildly dilated. Mild concentric left ventricular hypertrophy. Stage III Diastolic dysfunction. Moderately dilated left atrium. Thickened pericardium. Mild tricuspid
regurgitation. Trace aortic regurgitation. Severe mitral regurgitation. MV jet is an anterior wall hugging jet secondary to P2 flail. Mid ascending aorta is mildly dilated measuring 3.5 cm at the level of the RPA. Mild scattered atheroma seen in
the descending aorta.
LHC 05/14/23- 1: Mild left ventricular enlargement with visually estimated EF 60%
2: Mitral valve prolapse/moderate to severe right regurgitation
3. We will refer for evaluation for surgical mitral valve repair/replacement
PFT's: 05/27/23- FEV1/FVC: 70 (97% predicted). FEV1: 1.64L (54% predicted). FVC: 2.33L (55% predicted). MJF81-15%: 46% predicted.
Impression: Moderate restrictive lung defect seen with no evidence of obstructive lung disease. Consider additional testing with full PFT with lung volumes and diffusion capacity to further characterize this restrictive lung defect.
Reports and relevant images were personally reviewed.
-----
Critical care time 50 mins -- this includes review of history, physical exam, medications, hemodynamic/ventilator parameters, laboratory data, imaging and discussion with house staff, pharmacy, respiratory therapy, solar panel technician, and nursing.
[2023-06-14 15:00] LABS: Glucose - Point of Care 98 mg/dl (70-99)
[2023-06-14] MEDS: OFIRMEV 100 IV (15:04)
[2023-06-14] MEDS: PACERONE PO (15:07)
--- NOTE | 2023-06-14 15:30 | PTCARENOTE ---
pt nods appropriately, CHANG. drowsy. attempted CPAP trial, multiple periods of apnea. placed back on SIMV settings.
[2023-06-14 15:58] LABS: Glucose - Point of Care 123 mg/dl (70-99)
[2023-06-14 16:54] LABS: Hemoglobin 11.5 g/dL (13.0-18.0); Platelet Count 198 10^3/uL (130-400)
[2023-06-14 16:54] LABS: Glucose - Point of Care 115 mg/dl (70-99)
[2023-06-14 17:01] LABS: B.E. -0.9 mmol/L; HCO3 23.5 mmol/L (21-28); Ionized Calcium 1.19 mMOL/L (1.15-1.33); O2 Saturation % 99.6 % (94-98); PCO2 37 mmHg (35-48); PO2 167 mmHg (83-108); Potassium 5.1 mMOL/L (3.5-5.1); pH 7.41 (7.35-7.45)
--- NOTE | 2023-06-14 17:16 | RESPNOTE ---
patient extubated at 1710 without incident. 99% on 6L.
--- NOTE | 2023-06-14 17:17 | PTCARENOTE ---
pt tolerated CPAP trial, ABG drawn. WASTE SALVAGER aware of results. pt extubated to 6LNC @ 1710, oriented x4. IS 1500ml. Daughter Janki updated.
[2023-06-14] MEDS: ANCEF 5 IV (17:53)
[2023-06-14] MEDS: LOW STRENGTH ASPIRIN 81 MG PO (17:53)
[2023-06-14] MEDS: LIPITOR PO (18:15)
--- NOTE | 2023-06-14 18:15 | PTCARENOTE ---
SURVEILLANCE OPERATOR aware of slightly dampened PA and CVP pleths. BA bella dc'd as ordered. dressing c/d/i.
[2023-06-14] MEDS: DILAUDID 0.25 MG IV (18:26)
[2023-06-14 19:10] LABS: Glucose - Point of Care 109 mg/dl (70-99)
[2023-06-14] MEDS: ROXICODONE 5 MG PO (20:16)
[2023-06-14] MEDS: SENOKOT-S 1 TABLET PO (20:16)
--- NOTE | 2023-06-14 20:30 | PTCARENOTE ---
Patient received resting in bed. Patient's two daughters at bedside -Then went home for the evening. Patient A+A+Ox3. No neurological deficits noted. No c/o headache, dizziness or lightheadedness. O2 at 2L via NC. SaO2 100%. I.S. 1000ml. Two
chest tubes - Right Mediastinal/Pleural A and Right Mediastinal/Pleural B - Intact and patent - 5-10 ml red drainage - No air leak, tidaling or crepitus noted. Dressing intact. Sinus Rhythm with First Degree AV Block. Heart rate 60's. V-Wires.
No c/o chest pain, pressure or discomfort. Abdomen soft, round. Hypoactive bowel sounds. No BM. No c/o nausea. No vomiting. Campoverde catheter - Temperature sensing - Madhavi, yellow urine - Hourly Output charted. Right lateral chest region with
puncture sites and incision - Intact - Surgical Adhesive. Right groin incision intact - Surgical adhesive. Trace generalized edema. Positive Dorsalis pedis via Doppler. Right I.J. Cordis. Left radial arterial line - Pressure bag/Saline flush -
Zeroed and calibrated - Waveform within normal limits. Insulin gtt - Glycemic Protocol. Assessment as documented.
[2023-06-14] MEDS: ZOFRAN 4 MG IV (20:59)
[2023-06-14 21:11] LABS: Glucose - Point of Care 98 mg/dl (70-99)
--- NOTE | 2023-06-14 21:30 | PTCARENOTE ---
Patient with small amount of liquidity, clear emesis - Suctioned - Mouth care provided. Zofran 4mg IV administered. No further vomiting. No c/o nausea. Patient resting in bed, dozing intermittently. Assessment as documented.
[2023-06-14] MEDS: TYLENOL 1000 MG PO (22:35)
[2023-06-14] MEDS: NEURONTIN 200 MG PO (22:35)
[2023-06-14] MEDS: FLOMAX 0.400000000000000022 MG PO (22:35)
[2023-06-14] MEDS: FLEXERIL 5 MG PO (22:35)
[2023-06-14 23:19] LABS: Glucose - Point of Care 128 mg/dl (70-99)
[2023-06-15] VITALS (21 sets, daily range): BP systolic 98–145; BP diastolic 67–84; PULSE 66; O2SAT 97–100; BMI 31.2
[2023-06-15 00:59] LABS: Glucose - Point of Care 111 mg/dl (70-99)
[2023-06-15] MEDS: DILAUDID 0.5 MG IV ×3 (01:00→16:23)
[2023-06-15] MEDS: ANCEF 5 IV ×2 (02:43→10:38)
[2023-06-15 02:56] LABS: Glucose - Point of Care 95 mg/dl (70-99)
--- NOTE | 2023-06-15 03:43 | W.PN.CT ---
Today's Communication / Plan
-
Plan:
-No major issues overnight. Hemodynamically and neurologically intact
-Successfully extubated on 06/14/23 @ 1710
-Weaned off Levophed gtt. Remains on insulin gtt per protocol
-Last CI 2.43, U/O since OR 1700 mL
-Cont. current meds (ASA, Lipitor, Amiodarone, Lopressor)
-Monitor chest tube output: Med 55/120, R pleural 40/145
-D/C'd swan ~1800 on 06/14/23
-D/C A-line this AM @ 0415
-Transfer to [facility] phase once off insulin gtt
-D/C lopez later today given BPH on Flomax @ home
-Maintain cordis
-Maintain temporary pacer wires (will cut before d/c home)
-Encourage use of IS
-Wean off of O2 as tolerated
-OOB into chair/Ambulate
Assessment / Plan
-
Assessment:
-S/P Redo mediastinal access via right mini thoracotomy with right common femoral artery and vein cannulation under PANCHO guidance/Radical mitral valve repair (32 mm band annuloplasty, 2 pairs of CV 4 [place]-Paul cords to the P2 scallop, 1 pair of CV 4
[place] cord to the A2 scallop, free margin remodeling at P1/P2 and P2/P3 and A2/A3)/Significant adhesiolysis intrapericardial as well as pneumolysis of pulmonary adhesions, by Dr. Mustafa, 06/14/23, pod#1
-Severe MR
-Dilated Asc. Aorta (3.5 cm per intraop PANCHO)
-LVEF 60-65%
-Mild TR
-Hx Pericardial effusion/pericarditis S/P pericardiotomy/pericardiocentesis, pericardectomy via subxiphoid and L ant. thoracotomy approach, 40 yrs ago
-Sinus bradycardia with 1st deg AVB
-Incomplete LBBB
-HTN
-Hyperlipidemia
-Prediabetes (hgb A1C 6.0)
-Class 1 obesity (BMI 33.1)
-PAMELA (uses CPAP machine)
-BPH (on Flomax @ home)
-S/P Cataracts
-Acute postop blood loss/Anemia (stable without transfusion)
-Acute postop atelectasis
-Acute postop hypovolemia with subsequent hypervolemia
Discussed patient care with: Cardiology, Nursing, Respiratory Therapy, Pharmacy and Care Team
Subjective
Procedure
S/P Redo mediastinal access via right mini thoracotomy with right common femoral artery and vein cannulation under PANCHO guidance/Radical mitral valve repair (32 mm band annuloplasty, 2 pairs of CV 4 [place]-Paul cords to the P2 scallop, 1 pair of CV 4
[place]-Paul cord to the A2 scallop, free margin remodeling at P1/P2 and P2/P3 and A2/A3)/Significant adhesiolysis intrapericardial as well as pneumolysis of pulmonary adhesions, by Dr. Mustafa, 06/14/23, pod#1
-
Date of Service: June 15, 2023
C/o mild incisional pain, otherwise feels well
Objective Data
-
PT 18.3 Sec (11.4-14.6) H 06/14/23 12:29
INR 1.54 06/14/23 12:29
APTT 32.1 Sec (23.4-35.0) 06/14/23 12:29
Vital Signs
Vital Signs
Temp Pulse Resp BP Pulse Ox
98.6 F 62 13 125/68 100
06/15/23 02:00 06/15/23 02:40 06/15/23 02:40 06/15/23 02:00 06/15/23 02:40
CT Intake/Output/Weight
06/14/23 06/14/23 06/15/23
06:59 18:59 06:59
Intake Total 546.3 / 774.5 228.2 / 774.5
Output Total [id number]
Balance -508.7 / -1155.5 -646.8 / -1155.5
SaO2: 100 (2L)
Physical Exam
-
General: Awake, Oriented and AOx3
Cardiovascular: Regular rate & rhythm, No Murmurs, No Rub and No Gallop
Respiratory: Decreased Breath Sounds (at bases, otherwise clear )
Sternum: Stable
Incision: Clean, Dry, Intact and Dressing Intact
Extremities: No Edema
Data Reviewed
-
Lab Results: Results Reviewed
Medications: Active Meds Reviewed
Chest X-Ray: Report Reviewed and Image Reviewed
ECG: Report Reviewed and Image Reviewed
--- NOTE | 2023-06-15 04:15 | PTCARENOTE ---
Patient A+A+Ox3. No neurological deficits noted. AM lab work collected and sent. EKG completed. Left radial arterial line discontinued without difficulty. Patient given CHG bath. Patient resting in bed. Assessment/Interventions as documented.
[2023-06-15 04:33] LABS: Hematocrit 33.9 % (39.0-52.0); Hemoglobin 11.3 g/dL (13.0-18.0); Mean Corp Hgb Conc. 33.3 g/dL (33.0-37.0); Mean Corpuscular Hgb 27.4 pg (27.0-31.0); Mean Corpuscular Volume 82.3 fL (80.0-94.0); Mean Platelet Volume 9.8 fL (7.4-10.4); Platelet Count 212 10^3/uL (130-400); Red Blood Cell Count 4.12 10^6/uL (4.70-6.10); Red Cell Dist. Width 13.9 % (11.5-14.5); White Blood Cell Count 14.4 10^3/uL (4.8-10.8)
[2023-06-15 05:00] LABS: Blood Urea Nitrogen 22 mg/dl (9-20); Calcium 8.7 mg/dl (8.4-10.2); Carbon Dioxide 22 mmol/L (22-30); Chloride 112 mmol/L (98-107); Estimated Creatinine Clearance 65 ml/min; Glucose 106 mg/dl (70-99); Magnesium 2.6 mg/dl (1.6-2.3); Potassium 4.9 mmol/L (3.5-5.1); Sodium 138 mmol/L (135-145); eGFR > 60.00
[2023-06-15 05:20] LABS: Glucose - Point of Care 106 mg/dl (70-99)
[2023-06-15] MEDS: TYLENOL 1000 MG PO ×3 (05:25→20:45)
[2023-06-15] MEDS: ROXICODONE 5 MG PO ×2 (05:25→13:21)
[2023-06-15 05:45] LABS: Hepatitis C Antibody Negative (Negative)
[2023-06-15 07:14] LABS: Glucose - Point of Care 104 mg/dl (70-99)
--- NOTE | 2023-06-15 07:43 | W.PN.ANS.POP ---
Anesthesia Post Operative
- Anesthesia Post Op Note
Vital Signs Stable-See Nursing Note: Yes
Airway Patent: Yes
Adequate Pain Control: Yes
Change in Mental Status: No
Current Postoperative Nausea & Vomiting: No
Anesthesia Complications: No
General Anesthetic Recall: No
Unplanned Admission: No
Post Op Hydration Adequate: Yes
- -
Pt awake and alert, OOB to chair...resting comfortably, no n/v at time of post op visit.
--- NOTE | 2023-06-15 07:45 | W.PN.CD ---
Today's Communication / Plan
-
Change home simvastatin to atorvastatin 40 mg daily.
Encourage incentive spirometry, ambulation.
Chest tube management per CT surgery.
Repeat EKG this morning.
Daily weights.
Monitor BP, restart home antihypertensives as he re-equilibrates.
Impression / Plan
-
Impression/Plan: 73M with HTN and severe primary MR who presented for elective MV repair.
#Myxomatous mitral valve degeneration with severe insufficiency
-S/P MV repair (#32 Last Physioflex Band, SN [id number], 2 pairs of [place]-Paul bands to P2, 1 pair to A2) 06/14/[address] Mustafa.
-Significant adhesiolysis intrapericardial he as well as pneumolysis of pulmonary adhesions.
-Required one defibrillation event after coming off cardiac bypass.
-EKG with first degree AV block & prolonged QT with poor R wave progression and anterolateral T wave inversions. Repeat EKG this AM.
-Routine post operative follow up. Encourage incentive spirometry. Ambulate when appropriate.
-Chest tube management per CT surgery.
#HLD/ASCVD (seen on CT)
-Chronic, stable.
-Change home simvastatin to atorvastatin 40 mg daily.
-Goal LDL < 55.
#HTN
-Chronic stable.
-Currently normotensive.
-Restart home antihypertensive medications as he re-equilibrates from surgery.
#Moderate Restrictive Spirometry
#Prior pericardiotomy and pericardiectomy
#PAMELA, on CPAP
Subjective/Interval History:
Extubated yesterday without incident.
Weight down 1.3 kg.
Ethical Hacker: Dr. Izaguirre
DATA:
Intraprocedural PANCHO, 06/14/2023:
CONCLUSIONS
Overall LVEF is approximately 60% with no RWMA.
Left ventricle is mildly dilated.
Mild concentric left ventricular hypertrophy.
Stage III Diastolic dysfunction.
Moderately dilated left atrium.
Thickened pericardium.
Mild tricuspid regurgitation.
Trace aortic regurgitation.
Severe mitral regurgitation.
MV jet is an anterior wall hugging jet secondary to P2 flail.
Mid ascending aorta is mildly dilated measuring 3.5 cm at the level of the RPA.
Mild scattered atheroma seen in the descending aorta.
POST OPERATIVE FINDINGS
The patient underwent a MV repair with an Annuloplasty ring and Torin-chord
placement. Postop rhythm remain sinus. RV and LV function remain normal.
Overall LVEF is still approximately 60% with no new RWMA. No MR noted. The
Annuloplasty band is well seated allowing normal leaflet motion. No systolic
anterior motion of the AMV leaflet noted. Max MV gradient measures 5 mmHg,
mean is 3 mmHg. Cardiac index at this time is 3.5. Trace AI. PV and TV
function appear normal. Aortic scan is unchanged.
Spirometry, 05/27/2023:
Impression:
Moderate restrictive lung defect seen with no evidence of obstructive lung disease. Consider additional testing with full PFT with lung volumes and diffusion capacity to further characterize this restrictive lung defect. Consider thoracic imaging
with CT chest (HRCT ideally) to rule out an intrinsic cause of restriction (i.e., scarring/interstitial lung disease).
CT C/A/P, 06/02/2023:
IMPRESSION:
1. Ascending thoracic aorta is of top normal size, measuring 3.5 cm in transverse dimension.
2. Mild coronary arterial calcification. Please correlate with symptoms of and risk factors for coronary artery disease, with further workup as clinically appropriate.
3. 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 No significant SMA or HALIE stenosis.
4. Cholelithiasis without evidence of acute cholecystitis.
5. Moderate prostatic enlargement.
Physical Exam
Vital Signs/Labs
Vital Signs
Temp Pulse Resp BP Pulse Ox
36.9 C 61 16 128/76 100
06/15/23 04:00 06/15/23 07:15 06/15/23 05:25 06/15/23 07:12 06/15/23 07:15
06/13/23 06/14/23 06/15/23
11:59 11:59 11:59
Actual Weight 102.7 kg 101.4 kg
06/15/23 04:17
06/15/23 04:17
PT 18.3 Sec (11.4-14.6) H 06/14/23 12:29
INR 1.54 06/14/23 12:29
APTT 32.1 Sec (23.4-35.0) 06/14/23 12:29
Magnesium 2.6 mg/dl (1.6-2.3) H 06/15/23 04:17
Physical Exam
Constitutional: No acute distress and Comfortable
EENT: Anicteric and Moist mucous membranes
Cardiovascular: Rhythm & rate is regular, Pedal edema is absent, JVD pressure is normal, S1S2 is normal and Murmur/rub/gallop absent
Respiratory: Respiratory effort normal, Lungs clear to auscul., Wheeze Absent, Crackles Absent and Rhonchi Absent
GI: Soft, Distention absent, Flat, Non tender and Normal bowel sounds
Neuro/Psych: AO x 3
Data Reviewed
-
Date of Service: June 15, 2023
Medical Decision Making: Reviewed Test Results, Independent Historian Assessment, Test Interpretation and Review of Case with other Provider
EKG: Tracing Personally Visualized and interpreted and Report Reviewed by me
Echo: Report Reviewed by me
X-Ray/CT/US/MRI/NUC/PET: Image Personally Visualized and interpreted and Report Reviewed by me
Medical Tests (PFT, Pathology etc): Report Reviewed by me
Labs: Labs Reviewed by me
Old Records: Reviewed
--- NOTE | 2023-06-15 08:00 | PTCARENOTE ---
Addendum entered by Quyen Ly RN 06/15/23 15:17:
0900- lopez dc'd. urinal within reach.
Original Note:
pt received from previous RN, oriented, OOB in chair. SR w/ 1st degree AVB, HR 60s. V wires in place, pacer box off. SBP 120s. palpable radial pulses, Doppler pedal pulses. pt on RA, 97-100% POX. lungs diminished in bases. IS encouraged. CT x2, no
air leak or crepitus noted. pt abdomen s/n, denies n/v. clear liquid diet tolerated well. Lopez in place, clear yellow urine. R lateral chest incisions approximated, SAIL REPAIRER. chest tube site c/d/i. R groin incision SAIL REPAIRER, approximated. RIJ cordis
maintained. PIV. insulin gtt running as ordered. see worklist for VS, I&O, and assessment.
[2023-06-15 08:17] LABS: Glucose - Point of Care 88 mg/dl (70-99)
[2023-06-15] MEDS: LOPRESSOR 12.5 MG PO ×2 (09:10→20:45)
[2023-06-15] MEDS: FLOMAX 0.400000000000000022 MG PO (09:10)
[2023-06-15] MEDS: PACERONE 200 MG PO ×3 (09:10→20:45)
[2023-06-15] MEDS: LOW STRENGTH ASPIRIN 81 MG PO (09:10)
[2023-06-15] MEDS: FLEXERIL 5 MG PO ×2 (09:10→20:45)
[2023-06-15] MEDS: NEURONTIN 200 MG PO ×3 (09:10→20:44)
[2023-06-15] MEDS: SENOKOT-S 1 TABLET PO ×2 (09:10→20:44)
[2023-06-15] MEDS: PROTONIX 40 MG PO (09:10)
[2023-06-15 09:11] LABS: Glucose - Point of Care 101 mg/dl (70-99)
[2023-06-15] MEDS: BACTROBAN 2% OINTMENT 1 APPLIC NASAL ×2 (09:11→20:46)
[2023-06-15 11:19] LABS: Glucose - Point of Care 109 mg/dl (70-99)
--- NOTE | 2023-06-15 12:15 | PTCARENOTE ---
pt VSS, OOB in chair. IS encouraged. daughters at bedside, daughters brought patients own CPAP from home. pt states no urge to void.
[2023-06-15 12:42] LABS: Glucose - Point of Care 111 mg/dl (70-99)
[2023-06-15 13:20] LABS: Glucose - Point of Care 124 mg/dl (70-99)
[2023-06-15] MEDS: NSS IV (13:22)
--- NOTE | 2023-06-15 14:16 | CM ---
Chart reviewed. Patient was OOB sitting in the chair. Patient's daughters were at bedside, living here for 2 months to help Dad. Patient is independent of ADLS, lives alone in a 2 STH, 0 CLARIBEL, 0 DME. Plan is for the patient to return home with
CT Transitional Care RN. CM to follow
--- NOTE | 2023-06-15 15:19 | W.PN.INTV ---
Today's Communication / Plan
Recommendations
Cont. with postop care
follow Chest tube output.
Diuresis
Follow HH.
On tele phase, will sign off.
Assessment
-
Patient is a 73-year-old male with previous history of hypertension, mitral valve prolapse/insufficiency with symptoms of shortness of breath for up to 1 year. He underwent cardiac workup with preserved left ejection fraction and eccentric severe
mitral regurgitation. Underwent mitral valve repair and postoperatively transferred to CVICU for further management.
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
margin remodeling at P1/P2 and P2/P3 and A2/A3) 06/14/23
Perioperative mechanical ventilation
Postop anemia, mild
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
HTN
HLD
BPH
PAMELA on CPAP
MVP
Cataracts
History of pericarditis s/p pericardiectomy
Plan
S/p MVR POD #1
Pain is controlled.
Extubated on 06/14/2023
CXR with post op changed.
PAMELA history, on CPAP/ok to resume.
Encouraged incentive spirometry, OOB/ambulation/early mobility
Analgesia per protocol.
Monitor critical I/O's
[place]/chest tube output, no excessive output
CXR without collections.
Hb stable.
No evidence for bleeding.
Trend CBC for now
Can transfuse if indicated for Hb <7, plt <50 in surgical patients
DVT prophylaxis including SCDs
Insulin gtt/management per protocol.
Advance diet as tolerated.
GI prophylaxis if indicated for mechanical ventilation >48 hours
Pt has been tranferred to tele. CCM will sign off.
-
Diagnostic Data
Chest X-Ray: 06/14/23- Support apparatus in position with endotracheal tube tip in the trachea less than 2 cm above the piero. Low lung volumes with some likely mild bibasilar subsegmental atelectasis.
No pneumothorax
CT Scan: CAP 06/02/23- 1. Ascending thoracic aorta is of top normal size, measuring 3.5 cm in transverse dimension.
2. Mild coronary arterial calcification. Please correlate with symptoms of and risk factors for coronary artery disease, with further workup as clinically appropriate.
3. 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 No significant SMA or HALIE stenosis.
4. Cholelithiasis without evidence of acute cholecystitis.
5. Moderate prostatic enlargement.
PANCHO 06/14/23- Overall LVEF is approximately 60% with no RWMA. Left ventricle is mildly dilated. Mild concentric left ventricular hypertrophy. Stage III Diastolic dysfunction. Moderately dilated left atrium. Thickened pericardium. Mild tricuspid
regurgitation. Trace aortic regurgitation. Severe mitral regurgitation. MV jet is an anterior wall hugging jet secondary to P2 flail. Mid ascending aorta is mildly dilated measuring 3.5 cm at the level of the RPA. Mild scattered atheroma seen in
the descending aorta.
LHC 05/14/23- 1: Mild left ventricular enlargement with visually estimated EF 60%
2: Mitral valve prolapse/moderate to severe right regurgitation
3. We will refer for evaluation for surgical mitral valve repair/replacement
PFT's: 05/27/23- FEV1/FVC: 70 (97% predicted). FEV1: 1.64L (54% predicted). FVC: 2.33L (55% predicted). NIG15-26%: 46% predicted.
Impression: Moderate restrictive lung defect seen with no evidence of obstructive lung disease. Consider additional testing with full PFT with lung volumes and diffusion capacity to further characterize this restrictive lung defect.
Reports and relevant images were personally reviewed.
-----
Subjective Dataa
Subjective Data
Date of Service:
Date of Service: June 15, 2023
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
Subjective:
No particular complaints.
Pain is controlled.
Review of Systems
Cardiopulmonary: Dyspnea (none at rest), Cough (n) and Sputum Production (n)
GI: Abdominal Pain (n) and Nausea (n)
Neuro: Headache (n)
Objective Data
Data Reviewed
Vital Signs / I&O / Oxygen:
Vital Signs
Temp Pulse Resp BP Pulse Ox
97.9 F 65 16 120/75 97
06/15/23 12:30 06/15/23 14:40 06/15/23 12:30 06/15/23 14:00 06/15/23 14:40
Intake and Output
06/14/23 06/15/23 06/16/23
06:59 06:59 06:59
Intake Total 820.1 / 820.1 98.7 / 98.7
Output Total 2180 / 2180 205 / 205
Balance -1359.9 / -1359.9 -106.3 / -106.3
SaO2 [SIMV] 100
SaO2 97
Nasal Cannula flow liters per 2
minute
Physical Exam
General: Respiratory Distress (n) and Comfortable
HEENT: Normocephalic
Cardiovascular: S1-S2
Respiratory: Clear, Non-Labored Respirations and Chest Tube (No airleak)
Labs/Micro/Reports
Lab Data
06/15/23 04:17
06/15/23 04:17
Laboratory Results
06/14/23
16:46
pH 7.41
pCO2 37
pO2 167 H
HCO3 23.5
O2 Delivery Level
--- NOTE | 2023-06-15 16:35 | PTCARENOTE ---
pt VSS, pt bladder scanned for 280ml, pt feels urge to void. pt OOB to chair x2 assist. voided in urinal. Dilaudid 0.5mg IVP given for pain as ordered.
[2023-06-15] MEDS: LIPITOR 40 MG PO (17:49)
--- NOTE | 2023-06-15 20:59 | PTCARENOTE ---
assumed care of patient @ 1900. received pt sitting in chair, AOX3. no c/o pain. VSS on RA. NSR with 1*AVB. doppler pedals, +radials. V wire insulated. Lungs clear on room air, Working with IS dilligently, around 1L. Wears CPAP at night. 2 CT
present labeled A and B. No air leak , tidaling or crepitus noted. belly soft, nontender. Voided 150 at change of shift yellow urine. All surgical incisions WDL. R IJ cordis and R wrist PIV patent. Pt resting comfortably with call hannon within reach,
family at bedside.
[2023-06-16] VITALS (12 sets, daily range): BP systolic 91–133; BP diastolic 59–84; PULSE 71; O2SAT 95–96; BMI 31.8
--- NOTE | 2023-06-16 | PTCARENOTE ---
Chest tube dressing changed and pt given CHG bath. Unable to use own cpap tonight forgot a part at home - briefly tried hospital machine however air was too cold. sats good on room air. resting comfortably, no change in assessment.
--- NOTE | 2023-06-16 03:00 | PTCARENOTE ---
nicotine patch placed on R upper arm
[2023-06-16 03:51] LABS: Hematocrit 34.6 % (39.0-52.0); Hemoglobin 11.2 g/dL (13.0-18.0); Mean Corp Hgb Conc. 32.4 g/dL (33.0-37.0); Mean Corpuscular Hgb 27.7 pg (27.0-31.0); Mean Corpuscular Volume 85.6 fL (80.0-94.0); Mean Platelet Volume 9.9 fL (7.4-10.4); Platelet Count 196 10^3/uL (130-400); Red Blood Cell Count 4.04 10^6/uL (4.70-6.10); White Blood Cell Count 16.9 10^3/uL (4.8-10.8)
--- NOTE | 2023-06-16 03:53 | PTCARENOTE ---
labs drawn and sent, cordis positional, redressed. pt resting comfortably, no change in assessment.
[2023-06-16 04:14] LABS: Blood Urea Nitrogen 29 mg/dl (9-20); Calcium 8.8 mg/dl (8.4-10.2); Carbon Dioxide 25 mmol/L (22-30); Chloride 107 mmol/L (98-107); Estimated Creatinine Clearance 65 ml/min; Glucose 124 mg/dl (70-99); Magnesium 2.5 mg/dl (1.6-2.3); Potassium 4.5 mmol/L (3.5-5.1); Sodium 135 mmol/L (135-145); eGFR > 60.00
--- NOTE | 2023-06-16 05:56 | W.PN.CT ---
Today's Communication / Plan
-
Plan:
-No major issues overnight. Hemodynamically and neurologically intact
-No drips
-Cont. current meds (ASA, Lipitor, Amiodarone, Lopressor)
-Consider d/c of chest tube: Med 20/60, R pleural 10
-Maintain cordis another day
-Maintain temporary pacer wires (will cut before d/c home)
-Encourage use of IS
-OOB into chair/Ambulate
Assessment / Plan
-
Assessment:
-S/P Redo mediastinal access via right mini thoracotomy with right common femoral artery and vein cannulation under PANCHO guidance/Radical mitral valve repair (32 mm band annuloplasty, 2 pairs of CV 4 [place]-Paul cords to the P2 scallop, 1 pair of CV 4
[place] cord to the A2 scallop, free margin remodeling at P1/P2 and P2/P3 and A2/A3)/Significant adhesiolysis intrapericardial as well as pneumolysis of pulmonary adhesions, by Dr. Mustafa, 06/14/23, pod#2
-Severe MR
-Dilated Asc. Aorta (3.5 cm per intraop PANCHO)
-LVEF 60-65%
-Mild TR
-Hx Pericardial effusion/pericarditis S/P pericardiotomy/pericardiocentesis, pericardectomy via subxiphoid and L ant. thoracotomy approach, 40 yrs ago
-Sinus bradycardia with 1st deg AVB
-Incomplete LBBB
-HTN
-Hyperlipidemia
-Prediabetes (hgb A1C 6.0)
-Class 1 obesity (BMI 33.1)
-PAMELA (uses CPAP machine)
-BPH (on Flomax @ home)
-S/P Cataracts
-Acute postop blood loss/Anemia (stable without transfusion)
-Acute postop atelectasis
-Acute postop hypovolemia with subsequent hypervolemia
Discussed patient care with: Cardiology, Nursing, Respiratory Therapy, Pharmacy and Care Team
Subjective
Procedure
S/P Redo mediastinal access via right mini thoracotomy with right common femoral artery and vein cannulation under PANCHO guidance/Radical mitral valve repair (32 mm band annuloplasty, 2 pairs of CV 4 [place] cords to the P2 scallop, 1 pair of CV 4
[place] cord to the A2 scallop, free margin remodeling at P1/P2 and P2/P3 and A2/A3)/Significant adhesiolysis intrapericardial as well as pneumolysis of pulmonary adhesions, by Dr. Mustafa, 06/14/23, pod#1
-
Date of Service: June 16, 2023
Pt c/o mild incisional pain, otherwise feels well
Objective Data
-
Lab Results
06/16/23 03:43
06/16/23 03:43
PT 18.3 Sec (11.4-14.6) H 06/14/23 12:29
INR 1.54 06/14/23 12:29
APTT 32.1 Sec (23.4-35.0) 06/14/23 12:29
Vital Signs
Vital Signs
Temp Pulse Resp BP Pulse Ox
98.2 F 77 16 131/84 97
06/16/23 03:51 06/16/23 03:30 06/16/23 03:51 06/15/23 23:35 06/16/23 03:51
CT Intake/Output/Weight
06/15/23 06/15/23 06/16/23
06:59 18:59 06:59
Intake Total 273.8 / 820.1 108.7 / 688.7 580 / 688.7
Output Total 1125 / 2180 385 / 865 480 / 865
Balance -851.2 / -1359.9 -276.3 / -176.3 100 / -176.3
SaO2: 97 (RA)
Physical Exam
-
General: Awake, Oriented and AOx3
Cardiovascular: Regular rate & rhythm, No Murmurs, No Rub and No Gallop
Respiratory: Decreased Breath Sounds (at bases, otherwise clear)
Sternum: Stable
Incision: Clean, Dry, Intact and Dressing Intact
Extremities: No Edema
Data Reviewed
-
Lab Results: Results Reviewed
Medications: Active Meds Reviewed
Chest X-Ray: Report Reviewed and Image Reviewed
ECG: Report Reviewed and Image Reviewed
--- NOTE | 2023-06-16 06:37 | PTCARENOTE ---
0546- pt in afib HR 150s-160s. Pt asymptomatic, BP stable. 2.5 IV lopressor given followed by an additional 5. CTPA reccomended pt stay in bed d/t variable HR. emotional support and education provided
--- NOTE | 2023-06-16 07:45 | PTCARENOTE ---
Assumed care of patient. Walking rounds completed with previous RN. Pt assessed while he was sitting in the chair. Pt alert and oriented x4. Pt rates right lateral chest pain 4/10-see MAR. Pt denies nausea and shortness of breath. CHANG with equal
strength throughout. SR with 1st degree AVB on tele with rates in the 70s. BP 101/71. Heart tones audible. Bilateral radial pulses palpable. Bilateral DP pulses present via doppler. No edema noted. Epicardial V-wire insulated. POX 96% on RA. Lungs
diminished in the bases. IS encouraged-750mL achieved. Right pleural/mediastinal chest tubes A & B to -20cm suction draining serosanguineous fluid WNL. No air leak, tidaling, crepitus noted. Abdomen, soft, round, nontender. Hypoactive BS. Pt due to
void for this RN. Right lateral chest incision approximated with skin glue, Right lateral puncture sites approximated with skin glue. Chest tube dressing CDI. Right IJ cordis intact infusing NSS KVO. Right hand PIV intact. See MAR for medication
administration. See worklist for complete nursing assessment. Plan of care reviewed and patient in agreement.
[2023-06-16] MEDS: TYLENOL 1000 MG PO ×3 (07:53→20:24)
[2023-06-16] MEDS: PACERONE 200 MG PO ×3 (07:54→20:24)
[2023-06-16] MEDS: NEURONTIN 200 MG PO ×3 (07:54→20:31)
[2023-06-16] MEDS: PROTONIX 40 MG PO (07:54)
[2023-06-16] MEDS: SENOKOT-S 1 TABLET PO ×2 (07:54→20:24)
[2023-06-16] MEDS: LOPRESSOR 12.5 MG PO ×2 (07:54→20:25)
[2023-06-16] MEDS: LOW STRENGTH ASPIRIN 81 MG PO (07:54)
[2023-06-16] MEDS: BACTROBAN 2% OINTMENT 1 APPLIC NASAL ×2 (07:54→20:25)
[2023-06-16] MEDS: FLOMAX 0.400000000000000022 MG PO (07:54)
[2023-06-16] MEDS: NSS 500 IV (07:54)
[2023-06-16] MEDS: ZOFRAN 4 MG IV (10:04)
--- NOTE | 2023-06-16 11:45 | PTCARENOTE ---
Pt reassessed. SR with 1st degree AVB with rates 60s-70s. BP stable. POX 96% on RA. Pt voided 200mL khoa urine in the urinal. Assisted to bed. CTx2 d/c per orders. new dressing applied. Pt tolerated. Resting in bed at this time.
[2023-06-16] MEDS: LASIX 20 MG PO (12:58)
--- NOTE | 2023-06-16 14:02 | W.PN.CD ---
Today's Communication / Plan
-
Agree with diuresis.
Ambulate.
Goal net negative by 1L by MN. If not, redose furosemide at 40 mg IV.
Impression / Plan
-
Impression/Plan: 73M with HTN and severe primary MR who presented for elective MV repair.
#Myxomatous mitral valve degeneration with severe insufficiency
-S/P MV repair (#32 Last Physioflex Band, SN [id number], 2 pairs of [place]-Paul bands to P2, 1 pair to A2) 06/14/[address] Mustafa.
-Significant adhesiolysis intrapericardial he as well as pneumolysis of pulmonary adhesions.
-Required one defibrillation event after coming off cardiac bypass.
-Routine post operative follow up. Encourage incentive spirometry and ambulation.
-Chest tubes pulled by CTS today.
-Furosemide 20 mg IV given.
#HLD/ASCVD (seen on CT)
-Chronic, stable.
-Atorvastatin 40 mg daily.
-Goal LDL < 55.
#HTN
-Chronic stable.
-Currently normotensive.
-Restart home antihypertensive medications as he re-equilibrates from surgery.
#Moderate Restrictive Spirometry
#Prior pericardiotomy and pericardiectomy
#PAMELA, on CPAP
Subjective/Interval History:
Weight up 2.1 kg from yesterday.
Blood pressure are borderline.
Garde Manager: Dr. Izaguirre
DATA:
Intraprocedural PANCHO, 06/14/2023:
CONCLUSIONS
Overall LVEF is approximately 60% with no RWMA.
Left ventricle is mildly dilated.
Mild concentric left ventricular hypertrophy.
Stage III Diastolic dysfunction.
Moderately dilated left atrium.
Thickened pericardium.
Mild tricuspid regurgitation.
Trace aortic regurgitation.
Severe mitral regurgitation.
MV jet is an anterior wall hugging jet secondary to P2 flail.
Mid ascending aorta is mildly dilated measuring 3.5 cm at the level of the RPA.
Mild scattered atheroma seen in the descending aorta.
POST OPERATIVE FINDINGS
The patient underwent a MV repair with an Annuloplasty ring and [place]-chord
placement. Postop rhythm remain sinus. RV and LV function remain normal.
Overall LVEF is still approximately 60% with no new RWMA. No MR noted. The
Annuloplasty band is well seated allowing normal leaflet motion. No systolic
anterior motion of the AMV leaflet noted. Max MV gradient measures 5 mmHg,
mean is 3 mmHg. Cardiac index at this time is 3.5. Trace AI. PV and TV
function appear normal. Aortic scan is unchanged.
Spirometry, 05/27/2023:
Impression:
Moderate restrictive lung defect seen with no evidence of obstructive lung disease. Consider additional testing with full PFT with lung volumes and diffusion capacity to further characterize this restrictive lung defect. Consider thoracic imaging
with CT chest (HRCT ideally) to rule out an intrinsic cause of restriction (i.e., scarring/interstitial lung disease).
CT C/A/P, 06/02/2023:
IMPRESSION:
1. Ascending thoracic aorta is of top normal size, measuring 3.5 cm in transverse dimension.
2. Mild coronary arterial calcification. Please correlate with symptoms of and risk factors for coronary artery disease, with further workup as clinically appropriate.
3. 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 No significant SMA or HALIE stenosis.
4. Cholelithiasis without evidence of acute cholecystitis.
5. Moderate prostatic enlargement.
Physical Exam
Vital Signs/Labs
Vital Signs
Temp Pulse Resp BP Pulse Ox
36.9 C 72 18 103/66 96
06/16/23 11:46 06/16/23 13:00 06/16/23 08:00 06/16/23 12:52 06/16/23 11:46
06/15/23 06/16/23 06/17/23
11:59 11:59 11:59
Actual Weight 101.4 kg 103.5 kg
06/16/23 03:43
06/16/23 03:43
PT 18.3 Sec (11.4-14.6) H 06/14/23 12:29
INR 1.54 06/14/23 12:29
APTT 32.1 Sec (23.4-35.0) 06/14/23 12:29
Magnesium 2.5 mg/dl (1.6-2.3) H 06/16/23 03:43
Physical Exam
Constitutional: No acute distress and Comfortable
EENT: Anicteric and Moist mucous membranes
Cardiovascular: Rhythm & rate is regular, Pedal edema is absent, JVD pressure is normal, S1S2 is normal and Murmur/rub/gallop absent
Respiratory: Respiratory effort normal, Lungs clear to auscul., Wheeze Absent, Crackles Absent and Rhonchi Absent
GI: Soft, Distention absent, Flat, Non tender and Normal bowel sounds
Neuro/Psych: AO x 3
Data Reviewed
-
Date of Service: June 16, 2023
Medical Decision Making: Reviewed Test Results, Independent Historian Assessment, Test Interpretation and Review of Case with other Provider
EKG: Tracing Personally Visualized and interpreted and Report Reviewed by me
Echo: Tracing Personally Visualized and interpreted and Report Reviewed by me
X-Ray/CT/US/MRI/NUC/PET: Image Personally Visualized and interpreted and Report Reviewed by me
Medical Tests (PFT, Pathology etc): Report Reviewed by me
Labs: Labs Reviewed by me
--- NOTE | 2023-06-16 14:23 | CM ---
Chart reviewed. Patient is independent of ADLS, lives alone in a [address], 0 [employer], 0 DME. Patient's daughters traveled in from [place] to stay with their father for 2 months. Plan is for the patient to return home with CT Transitional RN. CM to follow
--- NOTE | 2023-06-16 16:00 | PTCARENOTE ---
Pt reassessed. VSS. NSR with 1st degree AVB. BP stable. POX 96% on RA. Surgical sites stable. Pt ambulated 100' with walker to steady himself. Pt tolerated. Pt voided 125ml khoa urine. No additional changes from previous assessment.
[2023-06-16] MEDS: LIPITOR 40 MG PO (18:07)
--- NOTE | 2023-06-16 20:00 | PTCARENOTE ---
assumed care of patient @ 1900. received pt sitting in chair, AOX3. VSS on RA. NSR with 1*AVB. Doppler pedals, +radials, no edema. V wire insulated. Lungs clear on room air. Wears CPAP at night. CT dressing CDI. nontender belly. All surgical
incisions CDI. R IJ cordis with R wrist patent. Walked whole length of hallway and then assisted pt back to bed. resting comfortably with call hannon within reach.
[2023-06-16] MEDS: FLEXERIL 5 MG PO (20:24)
[2023-06-17] VITALS (18 sets, daily range): BP systolic 95–142; BP diastolic 64–113; PULSE 71–81; O2SAT 98–100; BMI 31.7
--- NOTE | 2023-06-17 00:30 | PTCARENOTE ---
pt wearing own cpap. resting comfortably, no change in assessment.
[2023-06-17 04:29] LABS: Hematocrit 31.5 % (39.0-52.0); Hemoglobin 10.4 g/dL (13.0-18.0); Mean Corpuscular Hgb 27.7 pg (27.0-31.0); Platelet Count 180 10^3/uL (130-400); Red Blood Cell Count 3.75 10^6/uL (4.70-6.10); Red Cell Dist. Width 14.1 % (11.5-14.5); White Blood Cell Count 13.1 10^3/uL (4.8-10.8)
--- NOTE | 2023-06-17 04:43 | W.PN.CT ---
Today's Communication / Plan
-
-pod #3
-no issues overnight
-diuresed with 20 po Lasix on 06/15 (uo 400/1200 in 12/24 hrs)
-Echo today (ordered)
-BMP pending
-Cont. current meds (ASA, Lipitor, Lasix, Amiodarone, Lopressor, Flomax)
-Maintain temporary pacer wires (will cut before d/c home)
-Encourage use of IS
-OOB into chair/Ambulate
Assessment / Plan
-
Assessment:
-S/P Redo mediastinal access via right mini thoracotomy with right common femoral artery and vein cannulation under PANCHO guidance/Radical mitral valve repair (32 mm band annuloplasty, 2 pairs of CV 4 [place] cords to the P2 scallop, 1 pair of CV 4
[place] cord to the A2 scallop, free margin remodeling at P1/P2 and P2/P3 and A2/A3)/Significant adhesiolysis intrapericardial as well as pneumolysis of pulmonary adhesions, by Dr. Mustafa, 06/14/23, pod#3
-Severe MR
-Dilated Asc. Aorta (3.5 cm per intraop PANCHO)
-LVEF 60-65%
-Mild TR
-Hx Pericardial effusion/pericarditis S/P pericardiotomy/pericardiocentesis, pericardectomy via subxiphoid and L ant. thoracotomy approach, 40 yrs ago
-Sinus bradycardia with 1st deg AVB
-Incomplete LBBB
-HTN
-Hyperlipidemia
-Prediabetes (hgb A1C 6.0)
-Class 1 obesity (BMI 33.1)
-PAMELA (uses CPAP machine)
-BPH (on Flomax @ home)
-S/P Cataracts
-Acute postop blood loss/Anemia (stable without transfusion)
-Acute postop atelectasis
-Acute postop hypovolemia with subsequent hypervolemia
Discussed patient care with: Nursing and Care Team
Subjective
Procedure
S/P Redo mediastinal access via right mini thoracotomy with right common femoral artery and vein cannulation under PANCHO guidance/Radical mitral valve repair (32 mm band annuloplasty, 2 pairs of CV 4 [place] cords to the P2 scallop, 1 pair of CV 4
[place] cord to the A2 scallop, free margin remodeling at P1/P2 and P2/P3 and A2/A3)/Significant adhesiolysis intrapericardial as well as pneumolysis of pulmonary adhesions, by Dr. Mustafa, 06/14/23, pod#1
-
Date of Service: June 17, 2023
Objective Data
-
Lab Results
06/17/23 04:21
PT 18.3 Sec (11.4-14.6) H 06/14/23 12:29
INR 1.54 06/14/23 12:29
APTT 32.1 Sec (23.4-35.0) 06/14/23 12:29
Vital Signs
Vital Signs
Temp Pulse Resp BP Pulse Ox
97.7 F 75 16 138/75 95
06/17/23 04:00 06/17/23 04:00 06/17/23 04:00 06/17/23 00:52 06/17/23 04:00
CT Intake/Output/Weight
06/16/23 06/16/23 06/17/23
06:59 18:59 06:59
Intake Total 580 / 688.7 580 / 680 100 / 680
Output Total 480 / 865 830 / 1380 550 / 1380
Balance 100 / -176.3 -250 / -700 -450 / -700
SaO2: 95
Physical Exam
-
General: Awake, Oriented and AOx3
Cardiovascular: Regular rate & rhythm, No Murmurs, No Rub and No Gallop
Respiratory: Decreased Breath Sounds (at bases, otherwise clear)
Sternum: Stable
Incision: Clean, Dry, Intact and Dressing Intact
Extremities: No Edema
Data Reviewed
-
Lab Results: Results Reviewed
Medications: Active Meds Reviewed
Chest X-Ray: Report Reviewed and Image Reviewed
ECG: Report Reviewed and Image Reviewed
[2023-06-17 04:55] LABS: Blood Urea Nitrogen 29 mg/dl (9-20); Calcium 9.1 mg/dl (8.4-10.2); Carbon Dioxide 27 mmol/L (22-30); Chloride 103 mmol/L (98-107); Estimated Creatinine Clearance 65 ml/min; Glucose 129 mg/dl (70-99); Magnesium 2.5 mg/dl (1.6-2.3); Potassium 4.2 mmol/L (3.5-5.1); Sodium 137 mmol/L (135-145); eGFR > 60.00
[2023-06-17] MEDS: TYLENOL 1000 MG PO ×3 (07:07→22:25)
--- NOTE | 2023-06-17 07:24 | W.PN.CD ---
Addendum entered and electronically signed by Marco A Gross DO 06/17/23 11:15:
TTE this morning shows a new echo density in the posterior wall of the left atrium.
Echo density is fairly echo bright (abnormal for thrombus).
TTE with perflutren has been ordered.
Patient now NPO as he may need PANCHO for further clarification.
Original Note:
Today's Communication / Plan
-
Furosemide 40 mg IV this morning.
Impression / Plan
-
Impression/Plan: 73M with HTN and severe primary MR who presented for elective MV repair.
#Myxomatous mitral valve degeneration with severe insufficiency
-S/P MV repair (#32 Last Physioflex Band, SN [id number], 2 pairs of [place]-Paul bands to P2, 1 pair to A2) 06/14/[address] Mustafa.
-Significant adhesiolysis intrapericardial he as well as pneumolysis of pulmonary adhesions.
-Required one defibrillation event after coming off cardiac bypass.
-Routine post operative follow up. Encourage incentive spirometry and ambulation.
-Furosemide 40 mg IV this morning.
#HLD/ASCVD (seen on CT)
-Chronic, stable.
-Atorvastatin 40 mg daily.
-Goal LDL < 55.
#HTN
-Chronic stable.
-Currently normotensive.
-Restart home antihypertensive medications as he re-equilibrates from surgery.
#Moderate Restrictive Spirometry
#Prior pericardiotomy and pericardiectomy
#PAMELA, on CPAP
Subjective/Interval History:
Weight down 0.4 kg.
Ambulated last night.
Supervisor Byproducts: Dr. Izaguirre
DATA:
Intraprocedural PANCHO, 06/14/2023:
CONCLUSIONS
Overall LVEF is approximately 60% with no RWMA.
Left ventricle is mildly dilated.
Mild concentric left ventricular hypertrophy.
Stage III Diastolic dysfunction.
Moderately dilated left atrium.
Thickened pericardium.
Mild tricuspid regurgitation.
Trace aortic regurgitation.
Severe mitral regurgitation.
MV jet is an anterior wall hugging jet secondary to P2 flail.
Mid ascending aorta is mildly dilated measuring 3.5 cm at the level of the RPA.
Mild scattered atheroma seen in the descending aorta.
POST OPERATIVE FINDINGS
The patient underwent a MV repair with an Annuloplasty ring and Torin-chord
placement. Postop rhythm remain sinus. RV and LV function remain normal.
Overall LVEF is still approximately 60% with no new RWMA. No MR noted. The
Annuloplasty band is well seated allowing normal leaflet motion. No systolic
anterior motion of the AMV leaflet noted. Max MV gradient measures 5 mmHg,
mean is 3 mmHg. Cardiac index at this time is 3.5. Trace AI. PV and TV
function appear normal. Aortic scan is unchanged.
Spirometry, 05/27/2023:
Impression:
Moderate restrictive lung defect seen with no evidence of obstructive lung disease. Consider additional testing with full PFT with lung volumes and diffusion capacity to further characterize this restrictive lung defect. Consider thoracic imaging
with CT chest (HRCT ideally) to rule out an intrinsic cause of restriction (i.e., scarring/interstitial lung disease).
CT C/A/P, 06/02/2023:
IMPRESSION:
1. Ascending thoracic aorta is of top normal size, measuring 3.5 cm in transverse dimension.
2. Mild coronary arterial calcification. Please correlate with symptoms of and risk factors for coronary artery disease, with further workup as clinically appropriate.
3. 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 No significant SMA or HALIE stenosis.
4. Cholelithiasis without evidence of acute cholecystitis.
5. Moderate prostatic enlargement.
Physical Exam
Vital Signs/Labs
Vital Signs
Temp Pulse Resp BP Pulse Ox
36.5 C 72 16 141/77 95
06/17/23 04:00 06/17/23 06:39 06/17/23 04:00 06/17/23 06:39 06/17/23 04:50
06/15/23 06/16/23 06/17/23
11:59 11:59 11:59
Actual Weight 101.4 kg 103.5 kg 103.1 kg
06/17/23 04:21
06/17/23 04:21
PT 18.3 Sec (11.4-14.6) H 06/14/23 12:29
INR 1.54 06/14/23 12:29
APTT 32.1 Sec (23.4-35.0) 06/14/23 12:29
Magnesium 2.5 mg/dl (1.6-2.3) H 06/17/23 04:21
Physical Exam
Constitutional: No acute distress and Comfortable
EENT: Anicteric and Moist mucous membranes
Cardiovascular: Rhythm & rate is regular, Pedal edema is absent, JVD pressure is normal, S1S2 is normal and Murmur/rub/gallop absent
Respiratory: Respiratory effort normal, Lungs clear to auscul., Wheeze Absent, Crackles Absent and Rhonchi Absent
GI: Soft, Distention absent, Flat, Non tender and Normal bowel sounds
Neuro/Psych: AO x 3
Data Reviewed
-
Date of Service: June 17, 2023
Medical Decision Making: Reviewed Test Results, Independent Historian Assessment, Test Interpretation and Review of Case with other Provider
EKG: Tracing Personally Visualized and interpreted and Report Reviewed by me
Echo: Report Reviewed by me
X-Ray/CT/US/MRI/NUC/PET: Image Personally Visualized and interpreted and Report Reviewed by me
Medical Tests (PFT, Pathology etc): Report Reviewed by me
Labs: Labs Reviewed by me
[2023-06-17] MEDS: NEURONTIN 200 MG PO ×3 (07:45→22:25)
[2023-06-17] MEDS: FLUSH (NSS) 1 FLUSH IV (07:45)
[2023-06-17] MEDS: BACTROBAN 2% OINTMENT 1 APPLIC NASAL ×2 (07:45→20:07)
--- NOTE | 2023-06-17 07:45 | PTCARENOTE ---
Resumed care of patient. Walking rounds completed. Pt assessed while he was sitting in the chair. Pt alert and oriented x4. Pt rates right sided pain 1/10, denies nausea and shortness of breath. CHANG with equal strength with all extremities. SR with
1st degree AVB on tele with rates in the 70s. BP stable 106/75. Heart tones audible. Bilateral radial pulses palpable. Bilateral DP pulses present via doppler. No edema noted. POX 99% on RA. Lungs diminished in the bases. Occasional productive cough
with coats sputum noted. IS encouraged-500ml achieved consistently. Abdomen soft,round, nontender. +BS. Pt reports passing gas, denies constipation. Pt voids small amounts of khoa urine in the urinal. Tolerating diet. Right lateral chest incision
approximated with skin glue intact, with several puncture sites. Right groin incision approximated with skin glue intact. Old chest tube sites covered with dressing CDI. Right IJ cordis and right wrist PIV intact. See MAR for medication
administration. See worklist for complete nursing assessment. Plan of care reviewed and patient in agreement.
[2023-06-17] MEDS: LOPRESSOR 12.5 MG PO ×2 (07:46→20:07)
[2023-06-17] MEDS: SENOKOT-S 1 TABLET PO ×2 (07:46→20:08)
[2023-06-17] MEDS: PACERONE 200 MG PO ×3 (07:46→22:26)
[2023-06-17] MEDS: FLOMAX 0.400000000000000022 MG PO (07:46)
[2023-06-17] MEDS: LOW STRENGTH ASPIRIN 81 MG PO (07:46)
[2023-06-17] MEDS: NSS IV (07:46)
[2023-06-17] MEDS: PROTONIX 40 MG PO (07:46)
--- NOTE | 2023-06-17 08:00 | PTCARENOTE ---
Pt noted to have bradycardia in the 50s on tele. EKG obtained and Dr. Aguiar made aware. Pt asymptomatic. BP stable. Returned to SR with 1st degree AVB with rates 60s-70s. ~10 minutes later.
--- NOTE | 2023-06-17 10:14 | CARDSERVLU ---
Echocardiogram with [facility] completed after protocol screening completed. Allergies verified.
Patent IV site: Right wrist 20 g PC
IV site flushed with 0.9% NaCl pre and post administration.
Diluted bolus method utilized to enhance visualization of ventricular mccray.
Total volume given: ____4 mL
Patient tolerated all procedures well without complications.
[2023-06-17] MEDS: LASIX 20 MG PO (10:27)
[2023-06-17] MEDS: KCL 10 MEQ PO (10:27)
--- NOTE | 2023-06-17 11:45 | PTCARENOTE ---
Pt reassessed. VSS. SR with 1st degree AVB with rates in the 70s-80s. BP 108/68. POX 96%. Surgical sites stable. Right IJ cordis d/c per orders. Pt sitting in the chair, tolerating. Pt notified of NPO status.
--- NOTE | 2023-06-17 14:53 | CM ---
Chart reviewed. Patient's echo showed abnormality, patient is going for PANCHO and CT of chest. Patient in independent of ADLS, lives alone in a 2 STH, 0 CLARIBEL, 0 DME. Patient's 2 daughters are visiting from [place] with plans to stay for 2 months. PT
evaluation ordered to get the patient a rolling walker for home. Plan is for the patient to return home with CT Transitional RN. CM to follow
--- NOTE | 2023-06-17 15:58 | PTCARENOTE ---
Addendum entered by Janice Le RN 06/17/23 16:06:
Temporary Epicardial V-wire set to back up 40/18/0.8
Original Note:
Pt recieved back from CT scan. Ambulated in the mauricio 200'. Pt tolerated, and assisted to the chair. Pt reassessed. Noted to be in Afib with rates in the 60s. BP stable 132/64. POX 96% on RA. Surgical sites stable. Pt does not feel any differently.
Resting in the chair at this time. CT PA and Dr. Mustafa made aware.
[2023-06-17] MEDS: CORDARONE 518 MG IV (16:34)
[2023-06-17] MEDS: CORDARONE 103 MG IV (16:34)
[2023-06-17] MEDS: LIPITOR 40 MG PO (17:44)
--- NOTE | 2023-06-17 20:30 | PTCARENOTE ---
Patient received OOB in chair. Patient A+A+Ox3. No neurological deficits noted. No c/o headache, dizziness or lightheadedness. Patient ambulated to bathroom with minimal assistance. Did not want to use rolling walker. Slow, steady gait.
Voided. Brushed teeth. Patient to bed. No s/s of respiratory distress. Room air. SaO2 98%. Home CPAP HS. Atrial Fibrillation. At 1917 - Sinus Rhythm with First Degree AV Block. Heart rate 70's. Patient continues on Amiodarone gtt per
protocol. Patient with no c/o chest pain, pressure or discomfort. V-Wires - Connected to pacemaker box. Normoactive bowel sounds. No BM. No c/o nausea. No vomiting. Incisions/puncture sites/Dressings as documented. Right upper arm midline
catheter. Assessment as documented.
[2023-06-17] MEDS: FLEXERIL 5 MG PO (22:26)
[2023-06-18] VITALS (15 sets, daily range): BP systolic 87–145; BP diastolic 67–93; PULSE 80; BMI 31.8
--- NOTE | 2023-06-18 | PTCARENOTE ---
Patient sleeping without difficulty. CPAP intact. Sinus Rhythm with First Degree AV Block. Heart rate 60-70's. Blood pressure 126/74 (87). Assessment/Interventions as documented.
--- NOTE | 2023-06-18 00:12 | W.PN.CT ---
Today's Communication / Plan
-
POD #4
-No issues overnight; converted to SR ~730pm on 06/17/23
- Diuresed w/ 20mg PO lasix
- TTE and CTA chest completed on 06/16
- 2-View CXR today
- EKG this AM to monitor RUTHY
- Transition amio gtt off and continue PO Amio
- Maintain temporary pacer wires (will cut before d/c home)
- Encourage use of IS
- OOB into chair/Ambulate
- Possible DC home today
Assessment / Plan
-
Assessment:
-S/P Redo mediastinal access via right mini thoracotomy with right common femoral artery and vein cannulation under PANCHO guidance/Radical mitral valve repair (32 mm band annuloplasty, 2 pairs of CV 4 [place]-Paul cords to the P2 scallop, 1 pair of CV 4
[place]-Paul cord to the A2 scallop, free margin remodeling at P1/P2 and P2/P3 and A2/A3)/Significant adhesiolysis intrapericardial as well as pneumolysis of pulmonary adhesions, by Dr. Mustafa, 06/14/23, pod#3
-Severe MR
-Dilated Asc. Aorta (3.5 cm per intraop PANCHO)
-LVEF 60-65%
-Mild TR
-Hx Pericardial effusion/pericarditis S/P pericardiotomy/pericardiocentesis, pericardectomy via subxiphoid and L ant. thoracotomy approach, 40 yrs ago
-Sinus bradycardia with 1st deg AVB
-Incomplete LBBB
-HTN
-Hyperlipidemia
-Prediabetes (hgb A1C 6.0)
-Class 1 obesity (BMI 33.1)
-PAMELA (uses CPAP machine)
-BPH (on Flomax @ home)
-S/P Cataracts
-Acute postop blood loss/Anemia (stable without transfusion)
-Acute postop atelectasis
-Acute postop hypovolemia with subsequent hypervolemia
Subjective
Procedure
S/P Redo mediastinal access via right mini thoracotomy with right common femoral artery and vein cannulation under PANCHO guidance/Radical mitral valve repair (32 mm band annuloplasty, 2 pairs of CV 4 [place]-Paul cords to the P2 scallop, 1 pair of CV 4
[place]-Paul cord to the A2 scallop, free margin remodeling at P1/P2 and P2/P3 and A2/A3)/Significant adhesiolysis intrapericardial as well as pneumolysis of pulmonary adhesions, by Dr. Mustafa, 06/14/23, pod#4
-
Date of Service: June 18, 2023
Objective Data
-
06/18/23 04:18
06/18/23 04:18
PT 18.3 Sec (11.4-14.6) H 06/14/23 12:29
INR 1.54 06/14/23 12:29
APTT 32.1 Sec (23.4-35.0) 06/14/23 12:29
Vital Signs
Vital Signs
Temp Pulse Resp BP Pulse Ox
98.4 F 70 16 126/74 99
06/17/23 22:20 06/17/23 22:26 06/17/23 22:20 06/17/23 22:26 06/17/23 22:20
CT Intake/Output/Weight
06/17/23 06/17/23 06/18/23
06:59 18:59 06:59
Intake Total 100 / 680 240 / 629.9 389.9 / 629.9
Output Total 550 / 1380 425 / 525 100 / 525
Balance -450 / -700 -185 / 104.9 289.9 / 104.9
SaO2: 99
Physical Exam
-
General: AOx3
Cardiovascular: Regular rate & rhythm
Respiratory: Rales and Decreased Breath Sounds
Incision: Clean and Dry
Data Reviewed
-
Lab Results: Results Reviewed
Medications: Active Meds Reviewed
--- NOTE | 2023-06-18 04:15 | PTCARENOTE ---
Patient resting in bed. AM lab work collected and sent. EKG completed. Assessment/Interventions as documented.
[2023-06-18 04:25] LABS: Hematocrit 32.4 % (39.0-52.0); Hemoglobin 10.5 g/dL (13.0-18.0); Mean Corp Hgb Conc. 32.4 g/dL (33.0-37.0); Mean Corpuscular Hgb 27.5 pg (27.0-31.0); Mean Corpuscular Volume 84.8 fL (80.0-94.0); Mean Platelet Volume 10.5 fL (7.4-10.4); Platelet Count 149 10^3/uL (130-400); Red Blood Cell Count 3.82 10^6/uL (4.70-6.10); Red Cell Dist. Width 13.8 % (11.5-14.5); White Blood Cell Count 9.4 10^3/uL (4.8-10.8)
[2023-06-18 04:57] LABS: Blood Urea Nitrogen 24 mg/dl (9-20); Calcium 8.5 mg/dl (8.4-10.2); Carbon Dioxide 25 mmol/L (22-30); Chloride 107 mmol/L (98-107); Estimated Creatinine Clearance 71 ml/min; Glucose 108 mg/dl (70-99); Magnesium 2.2 mg/dl (1.6-2.3); Potassium 3.7 mmol/L (3.5-5.1); Sodium 135 mmol/L (135-145); eGFR > 60.00
[2023-06-18] MEDS: TYLENOL 1000 MG PO ×2 (06:10→14:24)
[2023-06-18] MEDS: KCL 40 MEQ PO (06:10)
--- NOTE | 2023-06-18 07:46 | PTCARENOTE ---
Patient received from nightshift nurse. Patient is alert and oriented x4. This AM patient feels very tired - flat affect and a bit withdrawn. Denies pain/discomfort. NSR with long first degree heart block. Audible heart tones. HR 60s-70s. BP 145/80.
Palpable radial pulses, doppler dorsalis pedal pulses. Trace generalized edema. RUE midline maintained. PIV maintained. Amio gtt received at 0.5mg/min. RA. Oxygen saturation 96%. Upon auscultation, lung sounds diminished at the bases. Abdomen round,
obese. +BS. Per patient, passing gas. No constipation, no BM noted. R lateral chest puncture site is approximated with surgical adhesive and open to air. R anterior lateral chest incision is approximated with surgical adhesive and open to air.
Assist x1 OOB into the chair. Will continue to monitor.
[2023-06-18] MEDS: DULCOLAX 10 MG PO (08:01)
[2023-06-18] MEDS: LOW STRENGTH ASPIRIN 81 MG PO (08:01)
[2023-06-18] MEDS: SENOKOT-S 1 TABLET PO (08:01)
[2023-06-18] MEDS: PROTONIX 40 MG PO (08:01)
[2023-06-18] MEDS: PACERONE 200 MG PO ×2 (08:02→16:04)
--- NOTE | 2023-06-18 08:03 | W.PN.CD ---
Today's Communication / Plan
-
Start furosemide 40 mg PO daily (in anticipation of discharge).
BMP in one week.
Amiodarone for rate/rhythm control of PAF.
Start metoprolol 25 mg daily (and hold home atenolol).
Discharge planning per CT surgery.
Impression / Plan
-
Impression/Plan: 73M with HTN and severe primary MR who presented for elective MV repair.
#Myxomatous mitral valve degeneration with severe insufficiency
-S/P MV repair (#32 Last Physioflex Band, SN [id number], 2 pairs of [place]-Paul bands to P2, 1 pair to A2) 06/14/[address] Mustafa.
-Significant adhesiolysis intrapericardial he as well as pneumolysis of pulmonary adhesions.
-Required one defibrillation event after coming off cardiac bypass.
-Routine post operative follow up. Encourage incentive spirometry and ambulation.
-Post procedure echo showed posterior left atrium echo density. CTA showed extracardiac structure, likely retained fibrillin from mitral valve surgery.
-Start furosemide 40 mg PO daily (in anticipation of discharge) with outpatient BMP in one week.
#PAF
-New diagnosis.
-Rate control with amiodarone. Start metoprolol 25 mg daily and hold home atenolol.
-CHADS2-Vasc = 3 (HTN, Age x2).
-Likely perioperative and the patient may require therapeutic anticoagulation after MVR regardless.
-Anticoagulation per CT surgery.
-Outpatient ambulatory monitoring to assess atrial fibrillation burden outside of the perioperative period.
#HLD/ASCVD (seen on CT)
-Chronic, stable.
-Atorvastatin 40 mg daily.
-Goal LDL < 55.
#HTN
-Chronic stable.
-Currently normotensive.
-Restart home antihypertensive medications as he re-equilibrates from surgery.
#Moderate Restrictive Spirometry
#Prior pericardiotomy and pericardiectomy
#PAMELA, on CPAP
Subjective/Interval History:
Weight up 0.6 kg.
TTE yesterday demonstrated an echodensity in the posterior left atrium that was not clearly intra or extra cardiac.
This prompted a CTA ([id number]) for better visualization of the structure. After extensive review with radiology, we are confident that this is a non-cardiac structure, likely retained fibrillin from the surgical mitral valve repair.
Overnight, patient went into paroxysmal atrial fibrillation.
Feeling 'washed out'.
Processing Manager: Dr. Izaguirre
DATA:
[facility] CTA, 06/17/2023:
IMPRESSION:
1. Left Atrial Appendage [place] Morphology without evidence for thrombus.
2. LEFT ATRIAL APPENDAGE OSTIUM MAXIMUM DIAMETER: 30.27 mm
3. Moderate calcific atherosclerotic plaque in the left anterior descending coronary artery.
4. Recent right anterolateral mini thoracotomy and radical mitral valve repair.
5. Mild cardiomegaly.
6. Small right pleural effusion.
7. Moderate segmental atelectasis of the medial segment of the right middle lobe.
8. Mild subpleural subsegmental atelectasis in the right lower lobe.
9. Cholelithiasis.
TTE, 06/17/2023:
CONCLUSIONS
Normal left ventricular size and systolic function. Mild concentric left
ventricular hypertrophy. No regional wall motion abnormalities are seen. LV
ejection fraction is 55-60% by Cabrera's method of discs. Diastolic function
indeterminate.
Normal right ventricular size and function.
Normal left atrial size. An echo density is present in the posterior aspect of
the left atrium. The lesion is uncharacteristically bright for a thrombus and
is visible with echocardiographic contrast. The lesion cannot firmly be
defined as intra-atrial vs. extra-atrial.
S/P mitral valve repair (#32 Last Physioflex Band, SN [id number], 2 pairs of
[place]-Paul bands to P2, 1 pair to A2).
Limited valve evaluation.
Compared to prior intraprocedureal transesophageal study of 06/14/2023, a new
echo density is observed in the posterior left atrium, which cannot reliably be
identified as intra or extra cardiac.
Intraprocedural PANCHO, 06/14/2023:
CONCLUSIONS
Overall LVEF is approximately 60% with no RWMA.
Left ventricle is mildly dilated.
Mild concentric left ventricular hypertrophy.
Stage III Diastolic dysfunction.
Moderately dilated left atrium.
Thickened pericardium.
Mild tricuspid regurgitation.
Trace aortic regurgitation.
Severe mitral regurgitation.
MV jet is an anterior wall hugging jet secondary to P2 flail.
Mid ascending aorta is mildly dilated measuring 3.5 cm at the level of the RPA.
Mild scattered atheroma seen in the descending aorta.
POST OPERATIVE FINDINGS
The patient underwent a MV repair with an Annuloplasty ring and Torin-chord
placement. Postop rhythm remain sinus. RV and LV function remain normal.
Overall LVEF is still approximately 60% with no new RWMA. No MR noted. The
Annuloplasty band is well seated allowing normal leaflet motion. No systolic
anterior motion of the AMV leaflet noted. Max MV gradient measures 5 mmHg,
mean is 3 mmHg. Cardiac index at this time is 3.5. Trace AI. PV and TV
function appear normal. Aortic scan is unchanged.
Spirometry, 05/27/2023:
Impression:
Moderate restrictive lung defect seen with no evidence of obstructive lung disease. Consider additional testing with full PFT with lung volumes and diffusion capacity to further characterize this restrictive lung defect. Consider thoracic imaging
with CT chest (HRCT ideally) to rule out an intrinsic cause of restriction (i.e., scarring/interstitial lung disease).
CT C/A/P, 06/02/2023:
IMPRESSION:
1. Ascending thoracic aorta is of top normal size, measuring 3.5 cm in transverse dimension.
2. Mild coronary arterial calcification. Please correlate with symptoms of and risk factors for coronary artery disease, with further workup as clinically appropriate.
3. 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 No significant SMA or HALIE stenosis.
4. Cholelithiasis without evidence of acute cholecystitis.
5. Moderate prostatic enlargement.
Physical Exam
Vital Signs/Labs
Vital Signs
Temp Pulse Resp BP Pulse Ox
36.4 C 70 18 145/80 98
06/18/23 08:00 06/18/23 08:02 06/18/23 08:00 06/18/23 08:02 06/18/23 08:00
06/16/23 06/17/23 06/18/23
11:59 11:59 11:59
Actual Weight 103.5 kg 103.1 kg 103.5 kg
06/18/23 04:18
06/18/23 04:18
PT 18.3 Sec (11.4-14.6) H 06/14/23 12:29
INR 1.54 06/14/23 12:29
APTT 32.1 Sec (23.4-35.0) 06/14/23 12:29
Magnesium 2.2 mg/dl (1.6-2.3) 06/18/23 04:18
Physical Exam
Constitutional: No acute distress and Comfortable
EENT: Anicteric and Moist mucous membranes
Cardiovascular: Rhythm & rate is regular, Pedal edema is absent, JVD pressure is normal, S1S2 is normal and Murmur/rub/gallop absent
Respiratory: Respiratory effort normal, Lungs clear to auscul., Wheeze Absent, Crackles Absent and Rhonchi Absent
GI: Soft, Distention absent, Flat, Non tender and Normal bowel sounds
Neuro/Psych: AO x 3
Data Reviewed
-
Date of Service: June 18, 2023
Medical Decision Making: Reviewed Test Results, Independent Historian Assessment, Test Interpretation and Review of Case with other Provider
EKG: Tracing Personally Visualized and interpreted and Report Reviewed by me
Echo: Tracing Personally Visualized and interpreted and Report Reviewed by me
X-Ray/CT/US/MRI/NUC/PET: Image Personally Visualized and interpreted, Report Reviewed by me, Discussed with Physician, Discussed with Patient and Discussed with Family
Medical Tests (PFT, Pathology etc): Image Personally Visualized and interpreted and Report Reviewed by me
Labs: Labs Reviewed by me
[2023-06-18] MEDS: BACTROBAN 2% OINTMENT 1 APPLIC NASAL (08:08)
[2023-06-18] MEDS: LOPRESSOR 12.5 MG PO (09:09)
[2023-06-18] MEDS: FLOMAX 0.400000000000000022 MG PO (09:10)
[2023-06-18] MEDS: NSS IV (10:44)
--- NOTE | 2023-06-18 11:34 | PTCARENOTE ---
Vital signs stable. Patient states he feels much better than from this AM. He does not have a flat affect and is not withdrawn. NSR with long first degree heart block. HR 70s. BP 104/67. RA. Oxygen saturation 99%. Patient ambulated to the with 1
assist to void. Placed back into bed for a nap then will have a late lunch.
--- NOTE | 2023-06-18 11:55 | CM ---
Chart reviewed. Patient is independent of ADLS, lives alone in a 2 STH, 0 CLARIBEL, 0 DME. Patient's 2 daughters are staying with the patient for 2 months. PT evaluation recommending home with walker. Plan is for the patient to return home with CT
Transitional RN. CM to follow
[2023-06-18] MEDS: KCL ELIXIR 40 MEQ PO (12:16)
--- NOTE | 2023-06-18 14:27 | PTCARENOTE ---
Patient c/o some RUE pain and some swelling where the midline is located. IV team RN was making her rounds, so primary RN was concerned that the patient's amio gtt infiltrated. IV team RN changed the RUE midline dressing. Patient then rang his call
hannon - he was in severe pain with numbness/tingling down to his R fingers. RN notified the CT AIR TRAFFIC CONTROL MANAGER, who assessed the RUE. Per CT AIR TRAFFIC CONTROL MANAGER, okay to remove the RUE midline. IV team called and they removed the midline. Patient tolerated.
--- NOTE | 2023-06-18 14:36 | VATNOTE ---
Called to remove Midline due to patient c/o pain in left arm, as well as some numbness and tingling. Patient reports when area of insertion is palpated, pain worsens. Patient states pain became 'much worse' when midline was being removed, now that
it is out, slowly improving. Recommend either heat or cold therapy as patient tolerates.
--- NOTE | 2023-06-18 16:33 | W.DCSUMMARY ---
Discharge Summary
Discharge Data
Date of Admission: 06/14/23
Date of Discharge: 06/18/23
-
Pending Results: No
Hospital Course
Primary care physician: Angel Lawson
Outpatient shipfitter helper: Gurpreet Izaguirre
Inpatient consultants: [facility] Cardiology
Procedures:
1. right mini thoracotomy with right common femoral artery and decannulation for radical mitral valve repair
Primary Diagnosis:
1. 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
Secondary Diagnoses:
1. Hypertension
2. Hyperlipidemia
3. Prediabetes (hgb A1C 6.0)
4. Class 1 obesity (BMI 33.1)
5. PAMELA (uses CPAP machine)
6. BPH
7. History of pericarditis with pericardiectomy
8. Chronic diastolic heart failure
HPI: 73-year-old -[place] male electively admitted 06/13 for mitral valve repair.
Hospital course: Patient underwent a right mini thoracotomy with right common femoral artery and vein cannulation for radical mitral valve repair (number 2 mm annuloplasty band, 2 pairs of CV 4 Alden-Paul cords to the P2 scallop, 1 pair of CV 4
Alden-Paul cords to the A2 scallop, free margin remodeling at P1/P2 and P2/P3 and A2/A3. Significant adhesiolysis intrapericardial adhesiolysis as well as pneumolysis of pulmonary adhesions, by Dr. Mustaaf on 06/14/23. Patient received no intraoperative
blood products. Patient was extubated at 1710. [place] was removed on postoperative day #1. Chest tubes were discontinued on postoperative day #2. Transthoracic echocardiogram on 06/16 reported an ejection fraction of 55 to 60% with an echo density
present in the posterior aspect of the left atrium. A CT angio of the chest was ordered did not identify thrombus. Patient did develop rate controlled atrial fibrillation and converted with amiodarone bolus and infusion. On postoperative day #4
patient reported having visual hallucinations during the night. Pain medications were reduced. IN the afternoon, the patient stated visual hallucinations had resolved. Patient did steps with physical therapy and two-view chest x-ray prior to
discharge was stable. Predischarge hemoglobin was 10.5, creatinine was 1.1, platelet count 149K. Pacing wires were clipped at skin level. Patient maintained sinus rhythm and was deemed stable for discharge to home. Lisinopril and serial
Aldactone were held on discharge due to lower normal range of systolic blood pressure.
Home medication changes:
Discharge Plan
-
Patient Disposition: Home (Routine Discharge)
Discharge Diagnosis/Procedures: MR/mitral valve repair
Condition: Fair
Diet: Low Fat and Low Sodium
Activity: As tolerated and No strenuous activity
Driving Restrictions: No driving for 2 weeks
Bathing Restrictions: OK to Shower
Other Services: Cardiac Rehab
Specialty Instructions: Weigh Daily- Call MD for wt gain/loss 3 lbs overnight/5 lbs in 1 week
Referrals:
CT Transitional Care Nurse [Outside] (The Cardiothoracic Transitional Care Nurse will call you to set up a visit in 1-2 days.)
[facility] [Outside] - 07/16/23 1:00 pm
(Cardiac Rehab Orientation and� First Exercise appointment is on _Saturday 07/15 at 1:00 pm____
The Cardiac Rehab gym is located on the first floor of the [facility].)
Clarita De La Cruz NP [Specified Professional Personl] - 07/26/23 2:00 pm
Angel Lawson MD [Family Provider] -
Mateo Mustafa MD [Active] - 07/15/23 2:00 pm
Prescriptions:
New
acetaminophen 325 mg Tablet
650 mg PO Q4HPRN PRN (Reason: mild pain,headache,temp >101F ) Qty: 0 0RF
aspirin [Children's Aspirin] 81 mg Tablet,Chewable
81 mg PO DAILY Qty: 0 0RF
amiodarone [Pacerone] 200 mg Tablet
200 mg PO BID Qty: 60 0RF
oxycodone 5 mg Tablet
2.5 mg PO Q4HPRN PRN (Reason: severe pain) Qty: 20 0RF
metoprolol tartrate 25 mg Tablet
25 mg PO Q12 Qty: 60 0RF
cyclobenzaprine 10 mg Tablet
5 mg PO Q8HPRN PRN (Reason: muscle spasm) Qty: 20 0RF
Continued
simvastatin 20 MG tablet
20 mg PO DAILY
tamsulosin [Flomax] 0.4 MG capsule
0.4 mg PO DAILY
zolpidem 10 mg Tablet
10 mg PO HS
finasteride
5 mg PO DAILY
Discontinued
spironolactone 25 MG tablet
25 mg PO DAILY
atenolol 25 mg Tablet
25 mg PO DAILY
lisinopril 10 mg Tablet
10 mg PO DAILY
Discharge Orders:
Discharge Patient (As Directed); Ordered 06/18/23
Ordered By: Sallie Minor
Care Plan Goals
Care Plan Goals:
Problem: Readiness for enhanced knowledge related to diagnosis and treatment plan
Goal: Understand your diagnosis and treatment plan needs, including medications if applicable.
Instructions: Know your diagnosis, underlying causes and treatment plan options, including medications if applicable. Consult with your health care team to learn about your diagnosis and treatment plan, including medications if applicable.
Discharge Date and Time
Print Language: [place]
[2023-06-18] MEDS: LIPITOR 40 MG PO (17:23)
--- NOTE | 2023-06-18 17:49 | PTCARENOTE ---
Discharge order placed. monitor car operator discontinued so patient could change into his normal clothes. Patient refused to shower - would like to at his own home. RN encouraged patient to take a shower here, but patient did not want to. Discharge
instructions explained to patient. Medication list, instructions, and prescriptions given to patient and daughters x2. PIV discontinued per discharge. Patient picked up by volunteer escort via wheelchair to the [facility].
== END 2023-06-18 19:03 | disposition home or self-care (01) | DRG 220 ==
LOC: CVICU 04:57
PROVIDERS: Internal Medicine Cardiovascular Disease; Nurse Practitioner; ADMITTING PHYSICIAN Thoracic Surgery (Cardiothoracic Vascular Surgery); CONSULT PHYSICIAN Internal Medicine; FAMILY PHYSICIAN Family Medicine
PROC: 02NN0ZZ Release Pericardium, Open Approach (ICD-10-PCS; 2023-06-14)
PROC: B24BZZ4 Ultrasonography of Heart with Aorta, Transesophageal (ICD-10-PCS; 2023-06-14)
PROC: 02HK0JZ Insertion of Pacemaker Lead into Right Ventricle, Open Approach (ICD-10-PCS; 2023-06-14)
PROC: 02UG0JZ Supplement Mitral Valve with Synthetic Substitute, Open Approach (ICD-10-PCS; 2023-06-14)
PROC: 5A1223Z Performance of Cardiac Pacing, Continuous (ICD-10-PCS; 2023-06-14)
PROC: 5A1221Z Performance of Cardiac Output, Continuous (ICD-10-PCS; 2023-06-14)
PROC: 02QG0ZZ Repair Mitral Valve, Open Approach (ICD-10-PCS; 2023-06-14)
PROC: 5A09357 Assistance with Respiratory Ventilation, Less than 24 Consecutive Hours, Continuous Positive Airway Pressure (ICD-10-PCS; 2023-06-17)
DX: I34.0 Nonrheumatic mitral (valve) insufficiency (principal); D62 Acute posthemorrhagic anemia; I31.0 Chronic adhesive pericarditis; I50.32 Chronic diastolic (congestive) heart failure; J98.11 Atelectasis; E86.1 Hypovolemia; E87.70 Fluid overload, unspecified; I11.0 Hypertensive heart disease with heart failure; E78.5 Hyperlipidemia, unspecified; N40.0 Benign prostatic hyperplasia without lower urinary tract symptoms; I25.10 Atherosclerotic heart disease of native coronary artery without angina pectoris; J98.4 Other disorders of lung; G47.33 Obstructive sleep apnea (adult) (pediatric); R73.03 Prediabetes; E66.9 Obesity, unspecified; Z68.33 Body mass index [BMI] 33.0-33.9, adult; Z88.1 Allergy status to other antibiotic agents
CPT/HCPCS: 93308; 36415; 71045; 71046; 75572; 80048; 80053; 81003; 82248; 82330; 82565; 82805; 82947; 82962; 83036; 83735; 84132; 84302; 84520; 85014; 85018; 85025; 85027; 85049; 85610; 85730; 86803; 86850; 86900; 86901; 86920; 87070; 93005; 93312; 93320; 93321; 93325; 93880; 94002; 94010; 97116; 97163; P9045; Q9950; Q9967

== ENCOUNTER 2023-06-20 01:44 | Emergency (ER) | payer OTHER, SELFPAY ==
[2023-06-20 01:50] VITALS: BP 125/78
[2023-06-20 03:11] VITALS: BMI 33.2
[2023-06-20 03:12] VITALS: BP 134/79
--- NOTE | 2023-06-20 03:13 | ED.GENMED ---
History of Present Illness
<FRANKY Howell - Last Filed: 06/20/23 06:32>
General
Chief Complaint: Breathing Problem
Source: patient
Time Seen by Provider: 06/20/23 03:09
Travel History
Have you had any contact with someone who has COVID-19?: No
Do you have any symptoms of coronavirus? Fever > 100 degrees, chills, cough, shortness of breath, sore throat, loss of taste or smell, muscle aches, or headache?: No
History of Present Illness
History of Present Illness:
Pt is a 73 year old male with a PMHx of sleep apnea, mitral regurgitation, HTN, and hyperlipidemia presenting to the ER for chest pain and SOB since 10 pm. Pt reports he had surgery for mitral valve repair on 06/14/23 and was discharged on Wednesday,
06/18/23. He reports he has been up and moving around since his surgery and denies any lower leg pain or swelling. He states the chest pain woke him from sleep, stating it was around a 7/10 in severity. When referring to his chest pain his points to
the center of his chest. He states he felt like he had to take many small breaths and admits to heart palpitations when the pain began. He called his doctor who instructed him to take 2.5 mg of his oxycodone. He reports that decreased his pain to a
3/10 which is where it has stayed. He reports he has had a dry cough since his surgery. He denies fever or chills, headache, dizziness, vision changes, diaphoresis, sore throat, congestion, nausea, vomiting, diarrhea, abdominal pain, or hemoptysis.
Past History
<FRANKY Howell - Last Filed: 06/20/23 06:32>
Past History
ED Past Medical History: Arrthythmia (afib), HTN and Hypercholesterolemia
ED Past Surgical History: None
Social History
Tobacco: Non-smoker
Alcohol: None
Drug: None
Personal:
Living: with family
Review of Systems
<FRANKY Howell - Last Filed: 06/20/23 06:32>
Review of Systems
All Other Systems: Not applicable
Constitutional: Reports no symptoms
EENT: Reports no symptoms
Respiratory: Reports cough and trouble breathing
Cardiac: Reports chest pain and palpitations
ABD/GI: Reports no symptoms
: Reports no symptoms
Musculoskeletal: Reports no symptoms
Skin: Reports no symptoms
Neurological: Reports no symptoms
Endocrine: Reports no symptoms
Hematologic/Lymphatic: Reports no symptoms
Psychiatric: Reports no symptoms
Phy Exam
<FRANKY Howell - Last Filed: 06/20/23 06:32>
General Physical Exam
General Presentation: well appearing and no apparent distress
General age: appears stated age
General Skin: warm and dry
General Habitus: elderly
General Mental: alert
General Hydration: dry mucous membranes and poor skin turgor
ENT Exam
ENT Exam: EOMI, pharynx normal, neck supple and normocephalic
Cardiovascular Exam
Cardiovascular Exam: regular rate/rhythm and normal peripheral pulses
Pulmonary Exam
Pulmonary Exam: lungs clear, no respiratory distress, no rales, no crackles, no rhonchi and no wheezing
Gastrointestinal Exam
Gastrointestinal Exam: normal bowel sounds, non tender, soft and no pulsatile mass
Neurological Exam
Neurological Exam: alert and oriented x3
Musculoskeletal Exam
Musculoskeletal Exam: no edema
Skin Exam
Skin Exam: normal color and warm/dry
Psychiatric Exam
Psychiatric Exam: normal mood/affect
Scores
<FRANKY Howell - [facility] Filed: 06/20/23 06:32>
Heart Failure Risk
Heart Failure Risk Score: Not Applicable
Course
<Shelley Siu [facility] - Last Filed: 06/20/23 06:32>
Orders/Labs/Results
Orders:
Orders
06/20/23 01:53
Electrocardiogram (*1) Urgent
Reason for Study: Other
Other Reason for Exam: Possible Sepsis
EKG- Treatment ONCE
CR Chest - 2 Views Urgent
Comment:
Reason For Exam: suspected infection
06/20/23 02:30
Blood Culture Q30M
CHRISTI Source: Blood/Venous
Specimen Description:
Comment: FROM 2 SEPARATE SITES
06/20/23 03:30
Complete Blood Count/With Diff Urgent
Comprehensive Metabolic Panel Urgent
Lactic Acid Q4H
Comment: ON ICE, CANCEL 2ND ORDER IF FIRST LACTIC ACID LEVEL <2
Troponin I Urgent
Blood Culture Q30M
CHRISTI Source: Blood/Venous
Specimen Description:
Comment: FROM 2 SEPARATE SITES
06/20/23 05:19
Troponin I Urgent
06/20/23 06:00
Lactic Acid Q4H
Comment: ON ICE, CANCEL 2ND ORDER IF FIRST LACTIC ACID LEVEL <2
Abnormal Lab Results
06/20/23 06/20/23
03:30 05:19
WBC 12.8 H 10^3/uL
(4.8-10.8)
RBC 4.06 L 10^6/uL
(4.70-6.10)
Hgb 11.1 L g/dL
(13.0-18.0)
Hct 33.2 L %
(39.0-52.0)
Abs Immat Gran (auto) 0.1 H 10^3/uL
(0-0.05)
Absolute Neuts (auto) 8.7 H 10^3/uL
(1.4-6.5)
Absolute Monos (auto) 2.4 H 10^3/uL
(0.1-0.6)
Immature Gran % 0.8 H %
(0-0.5)
Lymphocytes % 10.5 L %
(20.5-51.1)
Monocytes % 18.8 H %
(1.7-9.3)
Sodium 134 L mmol/L
(135-145)
Glucose 135 H mg/dl
(70-99)
AST 60 H U/L
(17-59)
ALT 71 H U/L
(0-50)
Troponin I 0.279 H* ng/ml 0.267 H* ng/ml
Albumin 3.4 L g/dl
(3.5-5.0)
06/20/23 03:30
06/20/23 03:30
Vital Signs
Initial and Last Documented VS:
Initial Vital Signs
Temp Pulse Resp BP Pulse Ox
100.2 F 94 24 125/78 98
06/20/23 01:50 06/20/23 01:50 06/20/23 01:50 06/20/23 01:50 06/20/23 01:50
Last Documented Vital Signs
Temp Pulse Resp BP Pulse Ox
99.3 F 84 21 153/90 100
06/20/23 03:12 06/20/23 06:00 06/20/23 06:00 06/20/23 06:00 06/20/23 05:30
<Fer Cerna, DO - Last Filed: 06/20/23 06:10>
Orders/Labs/Results
Orders:
Orders
06/20/23 01:53
Electrocardiogram (*1) Urgent
Reason for Study: Other
Other Reason for Exam: Possible Sepsis
EKG- Treatment ONCE
CR Chest - 2 Views Urgent
Comment:
Reason For Exam: suspected infection
06/20/23 02:30
Blood Culture Q30M
CHRISTI Source: Blood/Venous
Specimen Description:
Comment: FROM 2 SEPARATE SITES
06/20/23 03:30
Complete Blood Count/With Diff Urgent
Comprehensive Metabolic Panel Urgent
Lactic Acid Q4H
Comment: ON ICE, CANCEL 2ND ORDER IF FIRST LACTIC ACID LEVEL <2
Troponin I Urgent
Blood Culture Q30M
CHRISTI Source: Blood/Venous
Specimen Description:
Comment: FROM 2 SEPARATE SITES
06/20/23 05:19
Troponin I Urgent
06/20/23 06:00
Lactic Acid Q4H
Comment: ON ICE, CANCEL 2ND ORDER IF FIRST LACTIC ACID LEVEL <2
Abnormal Lab Results
06/20/23 06/20/23
03:30 05:19
WBC 12.8 H 10^3/uL
(4.8-10.8)
RBC 4.06 L 10^6/uL
(4.70-6.10)
Hgb 11.1 L g/dL
(13.0-18.0)
Hct 33.2 L %
(39.0-52.0)
Abs Immat Gran (auto) 0.1 H 10^3/uL
(0-0.05)
Absolute Neuts (auto) 8.7 H 10^3/uL
(1.4-6.5)
Absolute Monos (auto) 2.4 H 10^3/uL
(0.1-0.6)
Immature Gran % 0.8 H %
(0-0.5)
Lymphocytes % 10.5 L %
(20.5-51.1)
Monocytes % 18.8 H %
(1.7-9.3)
Sodium 134 L mmol/L
(135-145)
Glucose 135 H mg/dl
(70-99)
AST 60 H U/L
(17-59)
ALT 71 H U/L
(0-50)
Troponin I 0.279 H* ng/ml 0.267 H* ng/ml
Albumin 3.4 L g/dl
(3.5-5.0)
06/20/23 03:30
06/20/23 03:30
Vital Signs
Initial and Last Documented VS:
Initial Vital Signs
Temp Pulse Resp BP Pulse Ox
100.2 F 94 24 125/78 98
06/20/23 01:50 06/20/23 01:50 06/20/23 01:50 06/20/23 01:50 06/20/23 01:50
Last Documented Vital Signs
Temp Pulse Resp BP Pulse Ox
99.3 F 84 21 153/90 100
06/20/23 03:12 06/20/23 06:00 06/20/23 06:00 06/20/23 06:00 06/20/23 05:30
<FRANKY Howell - Last Filed: 06/20/23 06:32>
MDM/Problems Addressed
Differential Diagnosis Includes:
[place], PE, myocarditis, PNA, acute bronchitis
MDM/Problems Addressed:
chest pain and SOB
Chronic conditions affecting care: HTN and Arrhythmia
<FRANKY Howell - Last Filed: 06/20/23 06:32>
*Pulse Oximetry
Patient hypoxic: no
*Critical Care Note
Total Time (30-74mins, 75-104mins- exclusive of procedures): Not Applicable
<Fer Cerna DO - Last Filed: 06/20/23 06:10>
Update Note
Update Note:
Cardiothoracic nurse practitioner: He looks good, if his repeat troponin is equivocal he can go home and follow up with us. Has a visiting nurse coming out today or tomorrow to schedule his appointment. If not we can admit him to obs under Mustafa.
ED Attending Note
<FRANKY Howell - Last Filed: 06/20/23 06:32>
-
Portions of this chart may have been created with voice recognition software.� Occasional wrong word or��sound alike� substitutions may have occurred due to the inherent limitations of voice recognition software.
<Fer Cerna DO - Last Filed: 06/20/23 06:10>
ED Attending Note
Patient seen and examined by attending physician: Yes
I performed the substantive portion of visit, reviewed & personally made and approve the management plan that is documented in note by myself or BALJIT.: Yes
ED Attending Note:
This a pleasant 73-year-old male presents for chest pain and shortness of breath that began at 10 PM this last evening. Patient had a mitral valve repair on June 13 and was discharged from the hospital June 17. Today chest pain awakened him from
sleep stating that it was 7 out of 10 in severity.
Vital signs are stable. Patient not hypoxic
Nursing note reviewed. I agree with nursing documentation up to this point in time.
Home Meds and allergies reviewed.
NUMBER AND COMPLEXITY OF PROBLEMS ADDRESSED AT THE ENCOUNTER
� Chronic conditions affecting care: Hypertension, hyperlipidemia
� Acute Exacerbation and/or Progression of Chronic Illness:
� Differential Diagnosis includes:
AMOUNT AND/OR COMPLEXITY OF DATA TO BE REVIEWED AND ANALYZED
I performed an independent evaluation of the following and my interpretation is:
EKG:
CT:
X-rays:
Ultrasound:
Laboratory Studies: Troponin 0.279
Other:
Review of other/old records:
Cardiac surgery operative report from 06/14/2023:
Preoperative Diagnosis: Myxomatous mitral valve degeneration with severe insufficiency, symptomatic
Postoperative Diagnosis: Same, dense adhesions
Procedure(s) Performed:
1. Redo mediastinal access via right mini thoracotomy with right common femoral artery and vein cannulation under PANCHO guidance
2. Radical mitral valve repair (32 mm band annuloplasty, 2 pairs of CV 4 Corydon-Paul cords to the P2 scallop, 1 pair of CV 4 Corydon-Paul cord to the A2 scallop, free margin remodeling at P1/P2 and P2/P3 and A2/A3)
3. Placement temporary ventricular pacing wires
4. Trans esophageal echocardiography
5. Video-assisted thoracoscopic access using a 5 mm trocar and camera
6. Significant adhesiolysis intrapericardial he as well as pneumolysis of pulmonary adhesions
Clinical information was obtained by an independent historian:
Prescriptions/Medications Considered but not given:
Further testing considered but not performed:
RISK OF COMPLICATIONS AND/OR MORBIDITY OR MORTALITY OF PATIENT MANAGEMENT
Social determinants of health affecting care: Good Social Support, family at the bedside. Good follow-up, cardiothoracic nurse practitioner aware of patient
Discussion with other providers: Cardiothoracic PRODUCT INSPECTION COORDINATOR, Royce Tarango who is in contact with Dr. Mustafa
Escalation of care including admission/observation vs risk of discharge considered: Patient with an elevated troponin. Possibility that is elevated from the procedure. Will continue to monitor.
CRITICAL CARE NOTE:
Total Time (exclusive of procedures):
Update:
Discharge Plan
Departure
Patient Disposition: Home (Routine Discharge)
Date of Disposition: 06/20/23
Time of Disposition: 06:07
Patient with high blood pressure during this ER visit?: Yes
Condition: Good
Discharge Problem:
Chest pain
Instructions: Chest Pain (DC)
Prescriptions:
No Action
simvastatin 20 MG tablet
20 mg PO DAILY
tamsulosin [Flomax] 0.4 MG capsule
0.4 mg PO DAILY
zolpidem 10 mg Tablet
10 mg PO HS
finasteride
5 mg PO DAILY
acetaminophen 325 mg Tablet
650 mg PO Q4HPRN PRN (Reason: mild pain,headache,temp >101F ) Qty: 0 0RF
aspirin [Children's Aspirin] 81 mg Tablet,Chewable
81 mg PO DAILY Qty: 0 0RF
amiodarone [Pacerone] 200 mg Tablet
200 mg PO BID Qty: 60 0RF
oxycodone 5 mg Tablet
2.5 mg PO Q4HPRN PRN (Reason: severe pain) Qty: 20 0RF
metoprolol tartrate 25 mg Tablet
25 mg PO Q12 Qty: 60 0RF
cyclobenzaprine 10 mg Tablet
5 mg PO Q8HPRN PRN (Reason: muscle spasm) Qty: 20 0RF
Referrals:
Angel Lawson MD [Family Provider] -
Mateo Mustafa MD [Active] - Next open appointment
Activity Restrictions/Additional Instructions:
It was a pleasure meeting you and taking part in your care. We hope for your continued healing and wellness.
Please read discharge instructions in their entirety. However, they are for general education and may not describe your exact diagnosis at discharge. Information on your ER visit and medical conditions were discussed with you along with appropriate
follow up information...
If indicated, please take your medications as instructed and indicated on discharge paperwork.
Please schedule a follow up appointment as directed. Call to schedule an appointment
Please return to the emergency department with ANY change in, persisting, or worsening of symptoms. If any of your symptoms do not improve, or persist, or become more severe within 6-12 hours, please return to the emergency department for further
care.
Please return to the emergency department if you develop a headache, neck pain/stiffness, fever greater than 100.4F, chest pain, shortness of breath, persistent nausea, vomiting, slurred speech, difficulty walking, numbness/tingling, weakness, signs
of infection or any other symptoms that are worrisome to you.
If you have any questions or concerns please do not hesitate to call the Hospital at or E-mail me directly at [email or web address]
Interventions
Interventions:
*Risk Screen - Suicide Last Done: 06/20/23 01:50
*General Assessment Last Done: 06/20/23 01:50
*Neglect/Abuse Screening Last Done: 06/20/23 01:50
*Nursing Disposition Last Done: 06/20/23 06:19
ED- Cardiac Assessment Last Done: 06/20/23 03:32
ED- Pulmonary Assessment Last Done: 06/20/23 03:32
Discharge Date and Time
Discharge Date/Time: 06/20/23 06:20
Print Language: [place]ORE[place]
[2023-06-20 03:44] LABS: % Basophils 0.2 % (0-2); % Eosinophils 1.6 % (0-6); % Immature Granulocytes 0.8 % (0-0.5); % Lymphocytes 10.5 % (20.5-51.1); % Monocytes 18.8 % (1.7-9.3); % Neutrophils 68.1 % (42.2-75.2); Absolute Eosinophils 0.2 10^3/uL (0-0.7); Absolute Immature Granulocytes 0.1 10^3/uL (0-0.05); Absolute Lymphocytes 1.4 10^3/uL (1.2-3.4); Absolute Monocytes 2.4 10^3/uL (0.1-0.6); Absolute Neutrophils 8.7 10^3/uL (1.4-6.5); Hematocrit 33.2 % (39.0-52.0); Hemoglobin 11.1 g/dL (13.0-18.0); Mean Corp Hgb Conc. 33.4 g/dL (33.0-37.0); Mean Corpuscular Hgb 27.3 pg (27.0-31.0); Mean Corpuscular Volume 81.8 fL (80.0-94.0); Mean Platelet Volume 9.3 fL (7.4-10.4); Nucleated Red Blood Cells % 0 % (-); Platelet Count 279 10^3/uL (130-400); Red Blood Cell Count 4.06 10^6/uL (4.70-6.10); Red Cell Dist. Width 13.7 % (11.5-14.5); White Blood Cell Count 12.8 10^3/uL (4.8-10.8)
[2023-06-20 04:00] LABS: Lactic Acid 1.2 mmol/L (0.7-2.0)
[2023-06-20 04:03] LABS: ALT (SGPT) 71 U/L (0-50); AST (SGOT) 60 U/L (17-59); Albumin 3.4 g/dl (3.5-5.0); Alkaline Phosphatase 72 U/L (38-126); Blood Urea Nitrogen 20 mg/dl (9-20); Calcium 9.3 mg/dl (8.4-10.2); Carbon Dioxide 25 mmol/L (22-30); Chloride 103 mmol/L (98-107); Estimated Creatinine Clearance 66 ml/min; Glucose 135 mg/dl (70-99); Potassium 4.4 mmol/L (3.5-5.1); Sodium 134 mmol/L (135-145); Total Bilirubin 0.8 mg/dl (0.2-1.3); Total Protein 6.4 g/dl (6.3-8.2); eGFR > 60.00
[2023-06-20 04:14] LABS: Troponin I 0.279 ng/ml
[2023-06-20 04:41] VITALS: BP 142/83
[2023-06-20 05:00] VITALS: BP 137/85
[2023-06-20 05:56] LABS: Troponin I 0.267 ng/ml
[2023-06-20 06:00] VITALS: BP 153/90
== END 2023-06-20 06:20 | disposition home or self-care (01) ==
LOC: EMR 01:44
PROVIDERS: EMERGENCY PHYSICIAN Student in an Organized Health Care Education/Training Program; FAMILY PHYSICIAN Family Medicine
DX: R07.9 Chest pain, unspecified (principal); R79.89 Other specified abnormal findings of blood chemistry; R06.02 Shortness of breath; R05.9 Cough, unspecified; R00.2 Palpitations; I10 Essential (primary) hypertension
CPT/HCPCS: 99285; 71046; 80053; 83605; 84484; 85025; 87040; 93005

== ENCOUNTER 2023-07-30 13:58 | Emergency (ER) | payer OTHER, SELFPAY ==
[2023-07-30] VITALS (12 sets, daily range): BP systolic 129–167; BP diastolic 79–103; BMI 31.4
[2023-07-30 16:33] LABS: % Basophils 0.7 % (0-2); % Eosinophils 1.8 % (0-6); % Immature Granulocytes 0.2 % (0-0.5); % Lymphocytes 32.2 % (20.5-51.1); % Monocytes 17.9 % (1.7-9.3); % Neutrophils 47.2 % (42.2-75.2); Absolute Eosinophils 0.1 10^3/uL (0-0.7); Absolute Lymphocytes 1.8 10^3/uL (1.2-3.4); Absolute Neutrophils 2.7 10^3/uL (1.4-6.5); Hematocrit 36.8 % (39.0-52.0); Hemoglobin 12.1 g/dL (13.0-18.0); Mean Corp Hgb Conc. 32.9 g/dL (33.0-37.0); Mean Corpuscular Hgb 27.3 pg (27.0-31.0); Mean Corpuscular Volume 82.9 fL (80.0-94.0); Mean Platelet Volume 9.4 fL (7.4-10.4); Nucleated Red Blood Cells % 0 % (-); Platelet Count 290 10^3/uL (130-400); Red Blood Cell Count 4.44 10^6/uL (4.70-6.10); Red Cell Dist. Width 14.5 % (11.5-14.5); White Blood Cell Count 5.7 10^3/uL (4.8-10.8)
[2023-07-30 16:47] LABS: ALT (SGPT) 23 U/L (0-50); AST (SGOT) 30 U/L (17-59); Albumin 4.1 g/dl (3.5-5.0); Alkaline Phosphatase 82 U/L (38-126); Blood Urea Nitrogen 15 mg/dl (9-20); Calcium 9.6 mg/dl (8.4-10.2); Carbon Dioxide 27 mmol/L (22-30); Chloride 103 mmol/L (98-107); Estimated Creatinine Clearance 60 ml/min; Glucose 90 mg/dl (70-99); Potassium 4.4 mmol/L (3.5-5.1); Sodium 138 mmol/L (135-145); Total Bilirubin 0.4 mg/dl (0.2-1.3); Total Protein 7.5 g/dl (6.3-8.2); eGFR 57.29
--- NOTE | 2023-07-30 18:35 | ED.GENMED ---
History of Present Illness
General
Chief Complaint: Dizziness
Source: patient and family
Time Seen by Provider: 07/30/23 15:21
Travel History
Have you had any contact with someone who has COVID-19?: No
Do you have any symptoms of coronavirus? Fever > 100 degrees, chills, cough, shortness of breath, sore throat, loss of taste or smell, muscle aches, or headache?: No
History of Present Illness
History of Present Illness:
This is a 73-year-old male who presents feeling 'dizzy'. Patient states it started this morning. He was getting ready to go to rehab. He recently did have a mitral valve surgery and has been doing well. Patient states he just did not feel quite
himself and felt little off balance. He then felt like he could drive so was driven to rehab. He tried to do an exercise and just did not feel himself. No chest pain, no shortness of breath, no fevers, no headache no vision changes, no extremity
weakness.
Past History
Past History
ED Past Medical History: Arrthythmia (afib), HTN, Hypercholesterolemia, Valvular disease and Other (Obstructive sleep apnea)
ED Past Surgical History: Cardiac (Mitral valve repair)
Social History
Tobacco: Non-smoker
Alcohol: None
Drug: None
Personal:
Living: with family
Phy Exam
Physical Exam
Physical Exam:
CONSTITUTIONAL Patient alert and oriented to person, place and time. Well-appearing. Vital signs reviewed.
HEAD atraumatic, normocephalic.
EYES eyelids normal to inspection, Extraocular muscles intact, Conjunctiva normal, Sclera normal.
NECK normal range of motion, Trachea midline, no jugular venous distention.
RESPIRATORY CHEST No respiratory distress noted, Chest expansion equal, Bilateral breath sounds clear.
CARDIOVASCULAR regular rate and rhythm, Heart sounds normal.
ABDOMEN No distention.
BACK normal inspection, no obvious deformities
UPPER EXTREMITY range of motion normal, Motor strength normal, no cyanosis, no edema.
LOWER EXTREMITY range of motion normal, Motor strength normal, no cyanosis, no edema.
NEURO Speech normal, No focal motor deficits, Noe coma scale 15, Memory normal, Cranial Nerves intact to screening exam. Normal [id number]. No pronator drift. Normal gait. Negative Romberg
SKIN skin warm, dry, and normal in color.
PSYCHIATRIC patient oriented to person place and time, Normal affect.
Course
Orders/Labs/Results
Orders:
Orders
07/30/23 14:04
ECG [Electrocardiogram (*1)] Urgent
Reason for Study: Vertigo / Dizzy
EKG- Treatment ONCE
07/30/23 15:57
Electrocardiogram (*1) Stat
Reason for Study: Other
Other Reason for Exam: neuro symptoms
CT Head W/o Iv Contrast Urgent
Comment:
Reason For Exam: dizziness, recent MV repair
Cardiac Monitoring- Treatment ONCE
EKG- Treatment ONCE
07/30/23 16:22
Complete Blood Count/With Diff Urgent
Comprehensive Metabolic Panel Urgent
07/30/23 18:43
CR Chest - 2 Views Urgent
Comment:
Reason For Exam: dizzy, recent MVR
Abnormal Lab Results
07/30/23
16:22
RBC 4.44 L 10^6/uL
(4.70-6.10)
Hgb 12.1 L g/dL
(13.0-18.0)
Hct 36.8 L %
(39.0-52.0)
MCHC 32.9 L g/dL
(33.0-37.0)
Absolute Monos (auto) 1.0 H 10^3/uL
(0.1-0.6)
Monocytes % 17.9 H %
(1.7-9.3)
07/30/23 16:22
07/30/23 16:22
Vital Signs
Initial and Last Documented VS:
Initial Vital Signs
Temp Pulse Resp BP Pulse Ox
98.3 F 77 16 136/92 100
07/30/23 14:01 07/30/23 14:01 07/30/23 14:01 07/30/23 14:01 07/30/23 14:01
Last Documented Vital Signs
Temp Pulse Resp BP Pulse Ox
98.3 F 85 18 129/98 98
07/30/23 14:01 07/30/23 18:45 07/30/23 18:45 07/30/23 18:45 07/30/23 18:45
MDM/Problems Addressed
MDM/Problems Addressed:
Dizziness, hypertension
Acute Exacerbation and/or Progression of Chronic Illness: HTN
*Radiology
Radiology exam reviewed: radiology read reviewed
*Pulse Oximetry
Patient hypoxic: no
*EKG
Interpreted by ED Provider?: Yes
Interpretation: abnormal
Rate: normal
[place]: left axis deviation
Ischemia: non-specific ST changes
*Nut Picker Interpretation
Rate: normal
Interpretation: normal
Rhythm: sinus
*Critical Care Note
Total Time (30-74mins, 75-104mins- exclusive of procedures): Not Applicable
Data Reviewed
Source: patient
Prescriptions/Medications Considered But Not Given:
Considered Antivert but do not suspect positional vertigo
Patient Management
Escalation/DeEscalation of care consider admission/obs:
Patient is ambulatory and gait is normal. CT negative. Chest x-ray negative. Labs unremarkable. I do think he is safe for discharge and outpatient follow-up. No apparent complications with mitral valve repair
ED Attending Note
-
Portions of this chart may have been created with voice recognition software.� Occasional wrong word or��sound alike� substitutions may have occurred due to the inherent limitations of voice recognition software.
Discharge Plan
Departure
Patient Disposition: Home (Routine Discharge)
Date of Disposition: 07/30/23
Time of Disposition: 19:18
Patient with high blood pressure during this ER visit?: Yes
Discharge Problem:
Dizziness
Instructions: Dizziness, BLOOD PRESSURE
Prescriptions:
No Action
simvastatin 20 MG tablet
20 mg PO DAILY
tamsulosin [Flomax] 0.4 MG capsule
0.4 mg PO DAILY
zolpidem 10 mg Tablet
10 mg PO HS
finasteride
5 mg PO DAILY
acetaminophen 325 mg Tablet
650 mg PO Q4HPRN PRN (Reason: mild pain,headache,temp >101F ) Qty: 0 0RF
aspirin [Children's Aspirin] 81 mg Tablet,Chewable
81 mg PO DAILY Qty: 0 0RF
amiodarone [Pacerone] 200 mg Tablet
200 mg PO BID Qty: 60 0RF
oxycodone 5 mg Tablet
2.5 mg PO Q4HPRN PRN (Reason: severe pain) Qty: 20 0RF
metoprolol tartrate 25 mg Tablet
25 mg PO Q12 Qty: 60 0RF
cyclobenzaprine 10 mg Tablet
5 mg PO Q8HPRN PRN (Reason: muscle spasm) Qty: 20 0RF
Referrals:
Angel Lawson MD [Family Provider] -
Activity Restrictions/Additional Instructions:
Please see your doctor in the next 3 to 5 days for follow-up and reevaluation. Return immediately for worsening symptoms, chest pain, shortness of breath, palpitations or any other concerns
Interventions
Interventions:
*Risk Screen - Suicide Last Done: 07/30/23 16:24
*General Assessment Last Done: 07/30/23 16:24
*Neglect/Abuse Screening Last Done: 07/30/23 16:24
ED- Fall Risk Assessment Last Done: 07/30/23 16:26
*ED COVID-19 Vaccine History Last Done: 07/30/23 14:01
ED- Neurological Assessment Last Done: 07/30/23 16:24
ED- Cardiac Assessment Last Done: 07/30/23 16:26
Discharge Date and Time
Print Language: TAJIK
== END 2023-07-30 19:32 | disposition home or self-care (01) ==
LOC: EMR 13:58
PROVIDERS: EMERGENCY PHYSICIAN Emergency Medicine; FAMILY PHYSICIAN Family Medicine
DX: R42 Dizziness and giddiness (principal); I10 Essential (primary) hypertension; Z95.2 Presence of prosthetic heart valve
CPT/HCPCS: 99285; 70450; 71046; 80053; 85025; 93005

== ENCOUNTER 2023-08-13 15:00 | Outpatient (RCR) | payer OTHER, SELFPAY ==
[2023-07-30 13:31] LABS: Glucose - Point of Care 90 mg/dl (70-99)
== END 2023-08-13 23:59 | disposition home or self-care (01) ==
LOC: CRHB 15:00
PROVIDERS: ATTENDING PHYSICIAN Internal Medicine Cardiovascular Disease
DX: Z95.4 Presence of other heart-valve replacement (principal)
CPT/HCPCS: 82962; G0422; G0423

== ENCOUNTER → 2023-08-20 08:22 | Outpatient (REF) | payer OTHER, SELFPAY | LOC: HWRCS 08:22 | PROVIDERS: ATTENDING PHYSICIAN Nurse Practitioner; FAMILY PHYSICIAN Internal Medicine Cardiovascular Disease | DX: Z98.890 Other specified postprocedural states (principal) | CPT/HCPCS: 93308 ==

== ENCOUNTER 2023-09-10 06:41 | Outpatient (RCR) | payer OTHER, SELFPAY | END 2023-09-10 23:59 | disposition home or self-care (01) | LOC: CRHB 06:41 | PROVIDERS: ATTENDING PHYSICIAN Internal Medicine Cardiovascular Disease; FAMILY PHYSICIAN Family Medicine | DX: Z95.4 Presence of other heart-valve replacement (principal) | CPT/HCPCS: G0422; G0423 ==

== ENCOUNTER 2023-09-18 12:24 | Emergency (ER) | payer OTHER, SELFPAY ==
[2023-09-18 12:24] VITALS: BP 126/90
--- NOTE | 2023-09-18 13:47 | ED.GENMED ---
History of Present Illness
General
Chief Complaint: Swelling
Source: patient
Time Seen by Provider: 09/18/23 13:28
History of Present Illness
History of Present Illness:
73-year-old male presents complaining of swelling and burning to the left foot starting several days ago getting worse. He denies significant shortness of breath. He did have a recent mitral valve repair 2 months ago. He denies sweats or chills
or fever. No known injury. Does have history of gout. He is not anticoagulated. No other complaints at this time
Past History
Past History
ED Past Medical History: Arrthythmia (afib), HTN, Hypercholesterolemia, Valvular disease and Other (Obstructive sleep apnea)
ED Past Surgical History: Cardiac (Mitral valve repair)
Social History
Tobacco: Non-smoker
Alcohol: None
Drug: None
Personal:
Living: with family
Phy Exam
Physical Exam
Physical Exam:
General: Well-appearing male no acute respiratory distress
HEENT: Normocephalic atraumatic
Heart: Regular rate and rhythm
Lungs: Clear no wheeze
Musculoskeletal exam: Left foot swollen but tender over the MTP joint of the first toe. Subtle erythema noted over this area. No lymphangitic streaking. Mild edema in the left leg as well
Vascular: 2+ dorsalis pedis pulse bilateral feet
Neurologic: Good sensation bilateral feet
Scores
Heart Failure Risk
Heart Failure Risk Score: Not Applicable
Course
Orders/Labs/Results
Orders:
Orders
09/18/23 14:06
Complete Blood Count/With Diff Urgent
Comprehensive Metabolic Panel Urgent
NT-proBNP Urgent
Abnormal Lab Results
09/18/23
14:06
Hgb 12.4 L g/dL
(13.0-18.0)
Hct 38.1 L %
(39.0-52.0)
MCH 26.3 L pg
(27.0-31.0)
MCHC 32.5 L g/dL
(33.0-37.0)
RDW 14.8 H %
(11.5-14.5)
Absolute Monos (auto) 0.9 H 10^3/uL
(0.1-0.6)
Monocytes % 13.1 H %
(1.7-9.3)
09/18/23 14:06
09/18/23 14:06
Vital Signs
Initial and Last Documented VS:
Initial Vital Signs
Temp Pulse Resp BP Pulse Ox
98.1 F 80 18 126/90 100
09/18/23 12:24 09/18/23 12:24 09/18/23 12:24 09/18/23 12:24 09/18/23 12:24
Last Documented Vital Signs
Temp Pulse Resp BP Pulse Ox
98.1 F 80 18 126/90 100
09/18/23 12:24 09/18/23 12:24 09/18/23 12:24 09/18/23 12:24 09/18/23 12:24
MDM/Problems Addressed
Differential Diagnosis Includes:
Left foot pain and swelling. Consider CHF. Unlikely to be DVT without calf pain. Consider gout. No signs of cellulitis
Will check labs for evaluation of CHF. If negative consider treatment for gout
*Critical Care Note
Total Time (30-74mins, 75-104mins- exclusive of procedures): Not Applicable
Update Note
Update Note:
BNP normal. Labs reviewed without significant finding otherwise. Patient is tender over the MTP joint of the f left large toe. Suspect acute gout. Will prescribe prednisone. Stable for discharge
ED Attending Note
-
Portions of this chart may have been created with voice recognition software.� Occasional wrong word or��sound alike� substitutions may have occurred due to the inherent limitations of voice recognition software.
Discharge Plan
Departure
Patient Disposition: Home (Routine Discharge)
Date of Disposition: 09/18/23
Time of Disposition: 15:01
Patient with high blood pressure during this ER visit?: No
Discharge Problem:
Acute gout
Instructions: Gout ED
Prescriptions:
New
prednisone 20 mg tablet
40 mg PO DAILY 5 Days Qty: 10 0RF
No Action
simvastatin 20 MG tablet
20 mg PO DAILY
tamsulosin [Flomax] 0.4 MG capsule
0.4 mg PO DAILY
zolpidem 10 mg Tablet
10 mg PO HS
finasteride
5 mg PO DAILY
acetaminophen 325 mg Tablet
650 mg PO Q4HPRN PRN (Reason: mild pain,headache,temp >101F ) Qty: 0 0RF
aspirin [Children's Aspirin] 81 mg Tablet,Chewable
81 mg PO DAILY Qty: 0 0RF
amiodarone [Pacerone] 200 mg Tablet
200 mg PO BID Qty: 60 0RF
oxycodone 5 mg Tablet
2.5 mg PO Q4HPRN PRN (Reason: severe pain) Qty: 20 0RF
metoprolol tartrate 25 mg Tablet
25 mg PO Q12 Qty: 60 0RF
cyclobenzaprine 10 mg Tablet
5 mg PO Q8HPRN PRN (Reason: muscle spasm) Qty: 20 0RF
Referrals:
Angel Lawson MD [Family Provider] -
Activity Restrictions/Additional Instructions:
Use prednisone as directed. Return if worse otherwise follow-up with your family doctor
Discharge Date and Time
Print Language: ARMENIAN
[2023-09-18 14:31] LABS: % Basophils 0.6 % (0-2); % Immature Granulocytes 0.3 % (0-0.5); % Lymphocytes 22.1 % (20.5-51.1); % Monocytes 13.1 % (1.7-9.3); % Neutrophils 62.9 % (42.2-75.2); Absolute Eosinophils 0.1 10^3/uL (0-0.7); Absolute Lymphocytes 1.5 10^3/uL (1.2-3.4); Absolute Monocytes 0.9 10^3/uL (0.1-0.6); Absolute Neutrophils 4.3 10^3/uL (1.4-6.5); Hematocrit 38.1 % (39.0-52.0); Hemoglobin 12.4 g/dL (13.0-18.0); Mean Corp Hgb Conc. 32.5 g/dL (33.0-37.0); Mean Corpuscular Hgb 26.3 pg (27.0-31.0); Mean Corpuscular Volume 80.9 fL (80.0-94.0); Mean Platelet Volume 9.5 fL (7.4-10.4); Nucleated Red Blood Cells % 0 % (-); Platelet Count 298 10^3/uL (130-400); Red Blood Cell Count 4.71 10^6/uL (4.70-6.10); Red Cell Dist. Width 14.8 % (11.5-14.5); White Blood Cell Count 6.8 10^3/uL (4.8-10.8)
[2023-09-18 14:38] LABS: ALT (SGPT) 20 U/L (0-50); AST (SGOT) 30 U/L (17-59); Alkaline Phosphatase 89 U/L (38-126); Blood Urea Nitrogen 14 mg/dl (9-20); Calcium 9.7 mg/dl (8.4-10.2); Carbon Dioxide 28 mmol/L (22-30); Chloride 104 mmol/L (98-107); Glucose 94 mg/dl (70-99); Potassium 4.2 mmol/L (3.5-5.1); Sodium 138 mmol/L (135-145); Total Bilirubin 0.7 mg/dl (0.2-1.3); Total Protein 6.8 g/dl (6.3-8.2); eGFR > 60.00
[2023-09-18 14:47] LABS: NT-proBNP 189 pg/ml
== END 2023-09-18 15:46 | disposition home or self-care (01) ==
LOC: EMR 12:24
PROVIDERS: Physician Assistant; EMERGENCY PHYSICIAN Student in an Organized Health Care Education/Training Program; FAMILY PHYSICIAN Family Medicine
DX: M10.9 Gout, unspecified (principal); I48.91 Unspecified atrial fibrillation; I10 Essential (primary) hypertension; E78.00 Pure hypercholesterolemia, unspecified; I38 Endocarditis, valve unspecified; G47.33 Obstructive sleep apnea (adult) (pediatric)
CPT/HCPCS: 99283; 80053; 83880; 85025

== ENCOUNTER 2023-10-08 17:10 | Outpatient (RCR) | payer OTHER, SELFPAY | END 2023-10-08 23:59 | disposition home or self-care (01) | LOC: CRHB 17:10 | PROVIDERS: ATTENDING PHYSICIAN Internal Medicine Cardiovascular Disease; FAMILY PHYSICIAN Family Medicine | DX: Z95.4 Presence of other heart-valve replacement (principal) | CPT/HCPCS: G0422; G0423 ==

== ENCOUNTER → 2024-01-10 13:48 | Outpatient (REF) | payer OTHER, SELFPAY | LOC: RCS 13:48 | PROVIDERS: ATTENDING PHYSICIAN Thoracic Surgery (Cardiothoracic Vascular Surgery); FAMILY PHYSICIAN Family Medicine | DX: Z98.890 Other specified postprocedural states (principal) | CPT/HCPCS: 93306 ==

== ENCOUNTER → 2024-10-25 07:41 | Outpatient (REF) | payer OTHER, SELFPAY | LOC: HWRAD 07:41 | PROVIDERS: ATTENDING PHYSICIAN Family Medicine | DX: N40.0 Benign prostatic hyperplasia without lower urinary tract symptoms (principal); R10.9 Unspecified abdominal pain | CPT/HCPCS: 76770 ==

== ENCOUNTER → 2025-01-01 14:48 | Outpatient (REF) | payer OTHER, SELFPAY | LOC: RCS 14:48 | PROVIDERS: ATTENDING PHYSICIAN Thoracic Surgery (Cardiothoracic Vascular Surgery); FAMILY PHYSICIAN Family Medicine | DX: Z98.890 Other specified postprocedural states (principal) | CPT/HCPCS: 93306 ==